=== PATIENT | female | born 1985 | race Caucasian/White ===

== ENCOUNTER 2019-08-18 06:47 | Outpatient (CLI) | payer OTHER, SELFPAY ==
[2019-08-18 07:23] LABS: Hematocrit 42.3 % (37.0-47.0); Hemoglobin 14.7 g/dL (12.0-15.0)
== END 2019-08-18 06:48 | disposition home or self-care (01) ==
PROVIDERS: PCP Family Medicine; Visit Provider Anesthesiology
DX: N93.9 Abnormal uterine and vaginal bleeding, unspecified (principal)
CPT/HCPCS: 36415; 85014; 85018

== ENCOUNTER 2019-08-28 00:43 | Outpatient (CLI) | payer OTHER, SELFPAY ==
[2019-08-28 17:00] LABS: SARS-CoV-2 RNA PCR Negative
== END 2019-08-28 00:44 | disposition home or self-care (01) ==
LOC: ANHCOVIDDT 00:43
PROVIDERS: PCP Family Medicine; Visit Provider Obstetrics & Gynecology
DX: Z01.818 Encounter for other preprocedural examination (principal); Z11.59 Encounter for screening for other viral diseases
CPT/HCPCS: 87635; C9803; U0003

== ENCOUNTER 2019-08-30 01:00 | Day surgery (SDC) | payer OTHER, SELFPAY ==
[2019-08-15 15:20] VITALS: BMI 18.3
--- NOTE | 2019-08-29 21:45 | PM.IMHP ---
H&P: HPI History of Present Illness Chief complaint: irreg bleeding, uterine polyp Narrative: 34 y/o with irregular vaginal bleeding. Ultrasound demonstrated an endometrial mass suggestive of a polyp. The right ovary is surgically absent. The let ovary is unremarkable in appearance. She had a D&C and polypectomy a few years ago. Review of Systems Review of Systems: All systems reviewed & are unremarkable except as noted in HPI and below PMFSH Past Medical History Medical History (Updated 08/29/19 @ 21:49 by Rex Garcia MD) Anxiety Attention-deficit hyperactivity disorder, unspecified type Hx of migraines Medial epicondylitis of elbow Surgical History Surgical History H/O section History of D&C History of right oophorectomy Family History Family History Father Hypertension Mother Family history of lung cancer Grandparent Family history of malignant neoplasm of uterus Family history of throat cancer Other Family history of arthritis Family history of malignant neoplasm Social History Social History Smoking status: Never smoker Alcohol intake: current Substance use: never Substance use type: does not use Gender identity (if verbalized by the patient): Female Meds Home Medications and Allergies Home Medications Medication Instructions Recorded Confirmed Type rizatriptan 10 mg PO ONCE 08/15/19 08/15/19 History dextroamphetamine-amphetamine 10 10 mg PO BID #60 tablet 08/21/19 Rx mg tablet Allergies Allergy/AdvReac Type Severity Reaction Status Date / Time No Known Allergies Allergy Unknown Verified 08/15/19 15:10 Exam Const: Orientation/consciousness: patient oriented x3 Other: Well-developed, well-nourished female in no acute distress. Neck: Thyroid: thyroid normal Lymphatic: no lymphadenopathy noted (in neck, axilla or inguinal nodes) Resp: Effort & Inspection: normal respiratory effort Auscultation: clear to auscultation bilaterally Cardio: Rate: regular rate Rhythm: regular rhythm Heart sounds: S1 normal heart sound present and S2 normal heart sound present GI: Other: ABD: Soft, nontender, nondistended. No guarding or rebound tenderness. No hepatosplenomegaly. : General: Yes no CVA tenderness Other: External genitalia: normal female hair distribution, without lesion. Urethral meatus: no lesion, non prolapsed. Bladder: no mass, nontender Vagina: well-estrogenized, without lesion or discharge. No cystocele or rectocele. Cervix: no lesion or discharge. Uterus: small, anteverted, freely mobile, nontender Adnexa: no mass or tenderness. Anus/perineum: no lesions, nontender Back/Spine/Pelvis: Back: no CVA tenderness Skin: General skin exam: normal color and no rashes or lesions noted Neuro: General: patient oriented x3 Extrem: Other: Extremities: nontender with no edema Psych: Mental Status: mental status grossly normal Affect: normal affect Assessment and Plan Assessment and plan (1) Menometrorrhagia: Code(s): N92.1 - Excessive and frequent menstruation with irregular cycle Status: Acute Assessment and Plan: I have offered a hysteroscopy with D&C and endometrial polypectomy. She understands risks of surgery to include risks of anesthesia, risks of pain, infection, bleeding, blood products, thromboembolic phenomena and damage to adjacent structures such as bowel, bladder, ureters, blood vessels and nerves. She understands all these risks and elects to proceed with surgery. (2) Abnormal pelvic ultrasound: Code(s): R93.89 - Abnormal findings on diagnostic imaging of other specified body structures Status: Acute
[2019-08-30] MEDS: LACTATED RINGERS 1,000 ML 30 ML IV CONT (11:00)
[2019-08-30 11:23] VITALS: BP 130/98; PULSE 95; RESP 16; TEMP 37; O2SAT 100
--- NOTE | 2019-08-30 11:59 | WPDANESEPPF ---
Anes - Initial Pre Proc Eval Procedure: Operation Date: 08/30/19 12:00 Proposed Procedures p Hysteroscopy Dilation and Curettage, Polypectomy - Rex Garcia MD Date/Time: 08/30/19 11:59 Surgeon: Rex Garcia MD Pre Op Diagnosis: irreg bleeding, uterine polyp Patient Data Age: 34 Gender: F Height: 1.65 m Weight: 49.1 kg Last Vital Signs Temp 37.0 C 08/30/19 11:23 Pulse 95 08/30/19 11:23 Resp 16 08/30/19 11:23 BP 130/98 H 08/30/19 11:23 Pulse Ox 100 08/30/19 11:23 Allergies Allergy/AdvReac Type Severity Reaction Status Date / Time No Known Allergies Allergy Unknown Verified 08/30/19 10:54 Home Medications Medication Instructions Recorded Confirmed Type rizatriptan 10 mg PO ONCE 08/15/19 08/30/19 History dextroamphetamine-amphetamine 10 10 mg PO BID #60 tablet 08/21/19 08/30/19 Rx mg tablet Patient hx anesthesia problems: none Family hx anesthesia problems: none PMFSH Past Medical History Medical History (Updated 08/29/19 @ 21:49 by Rex Garcia MD) Anxiety Attention-deficit hyperactivity disorder, unspecified type Hx of migraines Medial epicondylitis of elbow Surgical History Surgical History H/O section History of D&C History of right oophorectomy Family History Family History Father Hypertension Mother Family history of lung cancer Grandparent Family history of malignant neoplasm of uterus Family history of throat cancer Other Family history of arthritis Family history of malignant neoplasm Social History Social History Smoking status: Never smoker Alcohol intake: current Substance use: never Substance use type: does not use Gender identity (if verbalized by the patient): Female Anes - Eval Final PreProcedure Day of Procedure 08/30/19 11:59 Patient weight: thin Heart: regular rate and rhythm Lungs: clear to auscultation and normal air movement Airway: Mallampati scale class 1 Neurological: alert and oriented Last oral intake: >/= 8 hours ASA classification: II Emergent: no Anesthetic plan: proceed Anesthesia type and monitoring: general GIVS and standard monitoring Informed Consent: The patient's anesthetic plan and its attendant risks and benefits were discussed with the patient/family/POA. Questions were solicited and answers provided to the satisfaction of the patient/family/POA.
--- NOTE | 2019-08-30 12:26 | WPDHPUPDATE1 ---
History and Physical Update Update Date/Time: 08/30/19 12:26 History and Physical has been reviewed, including an updated exam of the patient. There are NO changes in the patient's condition. Risks, benefits, and alternatives have been discussed and questions answered. Patient agrees to proceed with procedure.
[2019-08-30] MEDS: KETOROLAC 30 MG/ML VIAL (*BKC) IV PUSH (13:22)
--- NOTE | 2019-08-30 13:23 | SUR.OPER ---
EBL:20cc
[2019-08-30 13:29] VITALS: BP 131/91; PULSE 82; RESP 14; O2SAT 100
[2019-08-30 13:50] VITALS: BP 112/62; PULSE 70; RESP 14
--- NOTE | 2019-08-30 13:52 | PM.PROC ---
Procedure Note - Detailed Date of procedure: 08/30/19 Pre-op diagnosis: irreg bleeding, uterine polyp Menometrorrhagia Abnormal pelvic ultrasound Post-op diagnosis: other (Menometrorrhagia, endometrial polyp) Procedure performed: Hysteroscopy D&C Endometrial polypectomy Description of procedure: The patient was taken to the operating room where she was prepared and draped in the usual sterile fashion in the dorsal lithotomy position. The bladder was drained with a red rubber catheter. A sterile speculum was placed into the vagina. The anterior lip of the cervix was grasped with single-tooth tenaculum. Ten mL of 1% lidocaine was administered in a paracervical block. The cervix was then gently dilated using Hegar dilators until a 7 mm dilator could be passed. Hysteroscopy was performed using sterile saline as a distention medium. Findings are as noted above. A polyp forceps was advanced and the endometrial polyp was removed and passed off to be sent to pathology. Sharp curettage was then performed, and endometrial curettings were collected on a Telfa pad and passed off to be sent to pathology. A second look was taken with the hysteroscope and the polyp was noted to have been completely excised. Hemostasis was excellent. Sponge, lap, needle and instrument counts were correct. The patient was awakened and taken to the recovery room in stable condition. I was present and scrubbed through the entire procedure. Implants: None Anesthesia: MAC and local (paracervical block) Surgeon: Rex Garcia MD Estimated blood loss (mL): 5 Drains: No Packing: No Pathology: yes (Endometrial curettings and polyp) Complications: None Condition: stable Disposition: PACU Findings: On hysteroscopy, both tubal ostia were seen. A small polyp on a narrow stalk was noted to be arising from the right, anterior endometrium.
[2019-08-30 14:25] VITALS: BP 137/82; PULSE 68; RESP 14
== END 2019-08-30 14:38 | disposition home or self-care (01) ==
PROVIDERS: PCP Family Medicine; Visit Provider Obstetrics & Gynecology
PROC: 0U5B8ZZ Destruction of Endometrium, Via Natural or Artificial Opening Endoscopic (ICD-10-PCS; CPT 58563; principal; 2019-08-30 12:00)
DX: N92.1 Excessive and frequent menstruation with irregular cycle (principal); N84.0 Polyp of corpus uteri; F41.9 Anxiety disorder, unspecified
CPT/HCPCS: 58558; 88305; J1885; J2250; J2405; J2704; J3010; J7030; J7120

== ENCOUNTER 2019-11-22 06:45 | Outpatient (CLI) | payer OTHER, SELFPAY ==
--- NOTE | ~2019-11-22 | MR_ITS ---
EXAMINATION: MR brain/brain stem wo con EXAM DATE: 11/22/2019 07:36 INDICATION: Unspecified convulsions, seizure like episode 2 weeks ago. TECHNIQUE: Magnetic resonance imaging (MRI) of the brain/brain stem obtained without contrast. Sagitt al T1, axial diffusion, gradient echo (T2*), T1, T2, FLAIR sequences obtained. Seizure protocol was utilized including high-resolution coronal images through the hippocampi. There is no prior study f or comparison. FINDINGS: There are no areas of restricted diffusion to suggest acute infarction. There is no acute hemorrhage seen on the T2*, a hemosiderin sensitive sequence. No intraparenchymal brain mass. The ve ntricles are normal in size. There are no extra-axial collections. Flow voids are seen in the cereb ral arteries on the T2-weighted sequences consistent with their expected patency. The orbits are unr emarkable. Soft tissue is unremarkable. IMPRESSION: 1. Normal brain MRI examination. Reviewed, dictated and finalized at location A.
== END 2019-11-22 06:46 | disposition home or self-care (01) ==
LOC: ANHIMG 06:46
PROVIDERS: PCP Family Medicine; Visit Provider Family Medicine
DX: R56.9 Unspecified convulsions (principal)
CPT/HCPCS: 70551

== ENCOUNTER 2019-12-15 06:47 | Outpatient (CLI) | payer OTHER, SELFPAY ==
[2019-12-15 07:40] LABS: Glucose Fasting 92 mg/dL
[2019-12-15 09:26] LABS: Glucose 1 Hour 125 mg/dL
[2019-12-15 10:09] LABS: Glucose 2 Hour 94 mg/dL
[2019-12-15 11:21] LABS: Glucose 3 Hour 62 mg/dL
== END 2019-12-15 06:48 | disposition home or self-care (01) ==
PROVIDERS: PCP Family Medicine; Visit Provider Psychiatry & Neurology Neurology
DX: E16.2 Hypoglycemia, unspecified (principal)
CPT/HCPCS: 36415; 82951; 82952

== ENCOUNTER 2019-12-25 06:45 | Outpatient (CLI) | payer OTHER, SELFPAY ==
--- NOTE | 2019-12-25 12:29 | P.NEURO_ITS ---
Neurology EEG Report General Information Date of Study: 12/25/19 TEST EEG DIAGNOSIS Seizures CONDITION OF RECORDING Awake,drowsy and sleep EEG NUMBER [id number] CLINICAL HISTORY patient reported that she has had 2 seizures about a month apart she also reported that she starts with a tingling sensation in her fingers and hands then she starts trembling and becomes unconscious and subsequently she is very tired EEG DESCRIPTION basic resting occipital frequency consists of large amount of fairly well organized low to medium voltage 8 to 10 hertz per 2nd alpha admixed with low- voltage 15 to 18 hertz per 2nd beta activity. During drowsiness low-voltage beta activity is seen diffusely admixed with waxing and waning alpha activity. Bilateral symmetrical sleep activity seen during sleep with normal and symmetrical sleep spindles. Non paroxysmal. Nonfocal. Nonlateralizing. Only single bursts of theta activity seen lasting for less than 2nd IMPRESSION no significant abnormalities noted but considering the single burst of theta activity repeat EEG is suggested at a later date
== END 2019-12-25 06:46 | disposition home or self-care (01) ==
PROVIDERS: PCP Family Medicine; Visit Provider Psychiatry & Neurology Neurology
DX: R56.9 Unspecified convulsions (principal)
CPT/HCPCS: 95819

== ENCOUNTER 2020-02-05 11:10 | Outpatient (CLI) | payer OTHER, SELFPAY ==
[2020-02-05 11:54] LABS: Basophils Percent Auto 0.4 % (0.2-1.2); Eosinophils Percent Auto 0.1 % (0-4.4); Hematocrit 39.6 % (37.0-47.0); Hemoglobin 13.9 g/dL (12.0-15.0); Immature Granulocyte Absolute 0.03 K/mm3 (0.00-0.031); Immature Granulocyte Percent A 0.4 % (0-0.5); Lymphocytes Absolute Auto 1.68 K/mm3 (0.9-3.2); Lymphocytes Percent Auto 21.3 % (18.3-44.2); Mean Corpuscular HGB Conc 35.1 g/dl (32-36); Mean Corpuscular Hemoglobin 32.8 pg (26-34); Mean Corpuscular Volume 93.4 fl (80-100); Mean Platelet Volume 10.2 fl (7.4-10.4); Monocytes Absolute Auto 0.5 K/mm3 (0.1-0.6); Monocytes Percent Auto 6.2 % (2.6-8.5); Neutrophils Absolute Auto 5.6 K/mm3 (1.3-6.7); Neutrophils Percent Auto 71.6 % (45.5-73.1); Platelet Count Result 228 k/mm3 (150-375); Red Blood Count 4.24 M/mm3 (4.2-5.4); Red Cell Distribution Width 11.5 % (11.5-14.5); White Blood Count 7.9 K/mm3 (4.5-10.0)
[2020-02-05 12:13] LABS: Alanine Aminotransferase 16 U/L (4-35); Albumin Level 4.4 g/dL (3.5-5.1); Alkaline Phosphatase 51 U/L (38-126); Anion Gap 5 mmol/L (8-16); Aspartate Amino Transferase 34 U/L (14-36); Bilirubin,Total 0.6 mg/dL (0.2-1.3); Blood Urea Nitrogen 13 mg/dL (7-17); Calcium 9.5 mg/dL (8.4-10.2); Carbon Dioxide 33 mmol/L (22-30); Chloride 96 mmol/L (98-107); Estimated Glomerular Filt Rate > 60; Glucose 89 mg/dL (65-105); Potassium 4.1 mmol/L (3.4-5.0); Sodium 134 mmol/L (137-145)
== END 2020-02-05 11:11 | disposition home or self-care (01) ==
PROVIDERS: PCP Family Medicine; Visit Provider Family Medicine
DX: F32.9 Major depressive disorder, single episode, unspecified (principal); N92.1 Excessive and frequent menstruation with irregular cycle; Z79.899 Other long term (current) drug therapy
CPT/HCPCS: 36415; 80053; 84443; 85025

== ENCOUNTER 2020-03-07 08:38 | Outpatient (CLI) | payer OTHER, SELFPAY ==
[2020-03-07 09:20] LABS: Anion Gap 6 mmol/L (8-16); Blood Urea Nitrogen 15 mg/dL (7-17); Calcium 9.6 mg/dL (8.4-10.2); Carbon Dioxide 33 mmol/L (22-30); Chloride 97 mmol/L (98-107); Estimated Glomerular Filt Rate > 60; Glucose 101 mg/dL (65-105); Potassium 3.9 mmol/L (3.4-5.0); Sodium 136 mmol/L (137-145)
== END 2020-03-07 08:39 | disposition home or self-care (01) ==
LOC: ANHLAB 08:41
PROVIDERS: PCP Family Medicine; Visit Provider Family Medicine
DX: E87.1 Hypo-osmolality and hyponatremia (principal)
CPT/HCPCS: 36415; 80048

== ENCOUNTER 2020-04-01 06:45 | Outpatient (CLI) | payer OTHER, SELFPAY ==
--- NOTE | 2020-04-01 12:20 | WPDNEUROLOGY ---
Neurology EEG Report General Information Date of Study: 04/01/20 TEST eeg DIAGNOSIS seizures CONDITION OF RECORDING awake drowsy and sleep EEG NUMBER [id number] CLINICAL HISTORY patient reported several months ago she had 3 grand mal seizures within a month. Has had no problems since then. No previous or family history of seizures EEG DESCRIPTION basic resting occipital frequency consists of large amount of poorly organized low to medium voltage 11 to 13 hertz per 2nd alpha admixed with low-voltage 15 to 21 hertz per 2nd beta activity, during drowsiness low-voltage beta activity seen diffusely admixed with intermittent 6 to 7 hertz per 2nd theta activity .bilateral symmetrical sleep activity seen during sleep. hyperventilation not done. photic stimulation produced normal drive. non paroxysmal. Nonfocal. Nonlateralizing. IMPRESSION No significant abnormalities noted considering the history of the seizures clinical correlation recommended.
== END 2020-04-01 06:46 | disposition home or self-care (01) ==
PROVIDERS: PCP Family Medicine; Visit Provider Psychiatry & Neurology Neurology
DX: R56.9 Unspecified convulsions (principal)
CPT/HCPCS: 95819

== ENCOUNTER 2021-04-11 06:42 | Outpatient (CLI) | payer OTHER, SELFPAY ==
[2021-04-11 07:25] LABS: Hematocrit 42.5 % (37.0-47.0); Mean Corpuscular HGB Conc 35.3 g/dl (32-36); Mean Corpuscular Volume 93.6 fl (80-100); Mean Platelet Volume 10.4 fl (7.4-10.4); Platelet Count Result 228 k/mm3 (150-375); Red Blood Count 4.54 M/mm3 (4.2-5.4); Red Cell Distribution Width 11.7 % (11.5-14.5); White Blood Count 4.5 K/mm3 (4.5-10.0)
[2021-04-11 08:50] LABS: Vitamin D 25 Hydroxy 39.3 ng/mL
[2021-04-11 09:39] LABS: Alanine Aminotransferase 22 U/L (4-35); Albumin Level 4.7 g/dL (3.5-5.1); Alkaline Phosphatase 43 U/L (38-126); Anion Gap 9 mmol/L (8-16); Aspartate Amino Transferase 33 U/L (14-36); Bilirubin,Total 0.7 mg/dL (0.2-1.3); Blood Urea Nitrogen 11 mg/dL (7-17); Calcium 9.5 mg/dL (8.4-10.2); Carbon Dioxide 25 mmol/L (22-30); Chloride 102 mmol/L (98-107); Cholesterol 199 mg/dL (0-200); Estimated Glomerular Filt Rate > 60; Glucose 96 mg/dL (65-110); HDL Direct 105 mg/dL; Potassium 4.4 mmol/L (3.4-5.0); Sodium 136 mmol/L (137-145); Triglycerides 39 mg/dL (<150)
[2021-04-11 09:53] LABS: LDL Cholesterol Direct 65 mg/dL
[2021-04-11 10:38] LABS: Folic Acid 15.7 ng/mL (2.76->20)
== END 2021-04-11 06:43 | disposition home or self-care (01) ==
PROVIDERS: PCP Family Medicine; Visit Provider Family Medicine
DX: Z13.1 Encounter for screening for diabetes mellitus (principal); Z13.0 Encounter for screening for diseases of the blood and blood-forming organs and certain disorders involving the immune mechanism; Z13.220 Encounter for screening for lipoid disorders; Z13.29 Encounter for screening for other suspected endocrine disorder; Z13.21 Encounter for screening for nutritional disorder
CPT/HCPCS: 36415; 80053; 80061; 82306; 82607; 82746; 84443; 85027

== ENCOUNTER 2022-03-19 06:47 | Outpatient (CLI) | payer OTHER, SELFPAY ==
[2022-03-19 07:13] LABS: Hematocrit 45.7 % (37.0-47.0); Hemoglobin 15.4 g/dL (12.0-15.0); Mean Corpuscular HGB Conc 33.7 g/dl (32-36); Mean Corpuscular Hemoglobin 32.9 pg (26-34); Mean Corpuscular Volume 97.6 fl (80-100); Mean Platelet Volume 10.4 fl (7.4-10.4); Platelet Count Result 190 k/mm3 (150-375); Red Blood Count 4.68 M/mm3 (4.2-5.4); Red Cell Distribution Width 11.8 % (11.5-14.5); White Blood Count 4.6 K/mm3 (4.5-10.0)
[2022-03-19 07:26] LABS: Alanine Aminotransferase 36 U/L (6-35); Albumin Level 4.8 g/dL (3.5-5.1); Alkaline Phosphatase 49 U/L (38-126); Anion Gap 6 mmol/L (8-16); Aspartate Amino Transferase 52 U/L (14-36); Bilirubin,Total 0.8 mg/dL (0.2-1.3); Blood Urea Nitrogen 11 mg/dL (7-17); Calcium 9.3 mg/dL (8.4-10.2); Carbon Dioxide 32 mmol/L (22-30); Chloride 96 mmol/L (98-107); Cholesterol 230 mg/dL (0-200); Estimated Glomerular Filt Rate > 60; Glucose 92 mg/dL (65-110); Potassium 4.3 mmol/L (3.4-5.0); Sodium 134 mmol/L (137-145); Triglycerides 50 mg/dL (<150)
[2022-03-19 07:36] LABS: LDL Cholesterol Direct 67 mg/dL
[2022-03-19 07:47] LABS: HDL Direct 143 mg/dL
== END 2022-03-19 06:48 | disposition home or self-care (01) ==
LOC: ANHLAB 06:48
PROVIDERS: PCP Family Medicine; Visit Provider Family Medicine
DX: Z00.00 Encounter for general adult medical examination without abnormal findings (principal); E78.5 Hyperlipidemia, unspecified; E87.1 Hypo-osmolality and hyponatremia
CPT/HCPCS: 36415; 80053; 80061; 84443; 85027

== ENCOUNTER 2022-04-08 06:54 | Outpatient (CLI) | payer OTHER, SELFPAY ==
[2022-04-08 07:58] LABS: Alanine Aminotransferase 22 U/L (6-35); Albumin Level 4.8 g/dL (3.5-5.1); Alkaline Phosphatase 46 U/L (38-126); Anion Gap 6 mmol/L (8-16); Aspartate Amino Transferase 29 U/L (14-36); Bilirubin,Total 0.7 mg/dL (0.2-1.3); Blood Urea Nitrogen 10 mg/dL (7-17); Calcium 9.4 mg/dL (8.4-10.2); Carbon Dioxide 29 mmol/L (22-30); Chloride 99 mmol/L (98-107); Estimated Glomerular Filt Rate > 60; Glucose 96 mg/dL (65-110); Potassium 3.4 mmol/L (3.4-5.0); Sodium 134 mmol/L (137-145)
[2022-04-08 08:06] LABS: Appearance Urine Clear (Clear); Bilirubin Urine Negative (Negative); Blood Urine Negative (Negative); Color Urine Yellow (Yellow); Glucose Urine UA Negative (Negative); Ketones Urine Negative (Negative); Leukocyte Esterase Ur Negative LEU/UL (NEGATIVE); Nitrate Urine Negative (Negative); Protein Urine Negative (Negative); Urobilinogen Urine 0.2 mg/dL (<2.0)
[2022-04-08 08:11] LABS: Squamous Epithelial Cell Urine Rare /hpf (Few)
[2022-04-08 08:12] LABS: Add Urine Microscopic? YES
== END 2022-04-08 06:55 | disposition home or self-care (01) ==
PROVIDERS: PCP Family Medicine; Visit Provider Family Medicine
DX: Z00.00 Encounter for general adult medical examination without abnormal findings (principal); R79.89 Other specified abnormal findings of blood chemistry; E78.5 Hyperlipidemia, unspecified; E87.1 Hypo-osmolality and hyponatremia
CPT/HCPCS: 36415; 80053; 81001

== ENCOUNTER 2022-07-05 20:30 | Emergency (ER) | payer OTHER, SELFPAY ==
[2022-07-05] VITALS (13 sets, daily range): BP systolic 84–119; BP diastolic 42–90; PULSE 90–118; RESP 14–21; TEMP 36.2; O2SAT 98–100
--- NOTE | ~2022-07-05 | CT_ITS ---
CT of the Abdomen and Pelvis: Indication: Abdominal pain Technique: 2.5 mm axial scans were obtained through the abdomen and pelvis following intravenous adm inistration of 100 cc of Omnipaque 350. Dose reduction technique was used on this scan by utilizing a utomated exposure control and iterative reconstruction technique. The dose-length product (DLP) was 2 57.96 mGy-cm. COMPARISON: 08/24/2016 Findings: Scans through the lung bases are unremarkable. The liver, spleen, pancreas, gallbladder, adrenals and kidneys are within normal limits. No evidence of aortic aneurysm. No lymphadenopathy. No bowel obstruction or bowel wall thickening. Multiple fluid-filled bowel loops noted. No abscess or free air. Images through the pelvis were performed. Urinary bladder unremarkable. No adnexal mass evident. No a scites. Impression: Multiple fluid-filled bowel loops. Correlate for nonspecific enterocolitis. No abscess, free air, or obstruction. Reviewed, dictated and finalized at [facility]. Impression: Multiple fluid-filled bowel loops. Correlate for nonspecific enterocolitis. No abscess, free air, or obstruction.
--- NOTE | 2022-07-05 20:39 | ECG_ITS ---
Measurements Intervals [place] Rate: 87 P: 80 SD: 136 QRS: 51 QRSD: 86 T: 51 QT: 384 QTc: 463 Interpretive Statements SINUS RHYTHM WITHIN NORMAL LIMITS NO PREVIOUS ECG AVAILABLE FOR COMPARISON Electronically Signed On 07-06-2022 7:08:40 CDT by Sameer Ramos M.D.
--- NOTE | 2022-07-05 20:39 | PC.NURSE ---
Patient was sitting in chair in triage and started to complain of dizziness, loss of vision, and became pale. Patient was assisted into a wheelchair by this RN and DIEUDONNE Mulligan and taken directly back to ED room 11.
[2022-07-05 20:47] LABS: Glucose Point of Care 101 mg/dl (65-105)
[2022-07-05 21:05] LABS: Alanine Aminotransferase 21 U/L (6-35); Alkaline Phosphatase 46 U/L (38-126); Anion Gap 14 mmol/L (8-16); Aspartate Amino Transferase 32 U/L (14-36); Bilirubin,Total 0.7 mg/dL (0.2-1.3); Blood Urea Nitrogen 10 mg/dL (7-17); Calcium 9.3 mg/dL (8.4-10.2); Carbon Dioxide 22 mmol/L (22-30); Chloride 104 mmol/L (98-107); Estimated CRCL calculation 77 ml/min; Estimated Glomerular Filt Rate > 60; Glucose 101 mg/dL (65-110); Lipase 96 U/L (23-300); Potassium 3.5 mmol/L (3.4-5.0); Sodium 140 mmol/L (137-145)
[2022-07-05 21:31] LABS: Basophils Absolute Auto 0.1 K/mm3 (0.0-0.1); Basophils Percent Auto 0.5 % (0.2-1.2); Eosinophils Percent Auto 0.3 % (0-4.4); Hematocrit 49.3 % (37.0-47.0); Hemoglobin 16.6 g/dL (12.0-15.0); Immature Granulocyte Absolute 0.08 K/mm3 (0.00-0.031); Immature Granulocyte Percent A 0.5 % (0-0.5); Lymphocytes Absolute Auto 0.47 K/mm3 (0.9-3.2); Lymphocytes Percent Auto 3.1 % (18.3-44.2); Mean Corpuscular HGB Conc 33.7 g/dl (32-36); Mean Corpuscular Hemoglobin 32.7 pg (26-34); Mean Corpuscular Volume 97.2 fl (80-100); Mean Platelet Volume 10.4 fl (7.4-10.4); Monocytes Absolute Auto 0.5 K/mm3 (0.1-0.6); Monocytes Percent Auto 3.1 % (2.6-8.5); Neutrophils Absolute Auto 14.1 K/mm3 (1.3-6.7); Neutrophils Percent Auto 92.5 % (45.5-73.1); Platelet Count Result 206 k/mm3 (150-375); Red Blood Count 5.07 M/mm3 (4.2-5.4); White Blood Count 15.2 K/mm3 (4.5-10.0)
[2022-07-05] MEDS: SODIUM CHLORIDE 0.9% IV 1,000 ML 999 ML IV CONT (21:36)
[2022-07-05] MEDS: HYDROmorphone HCL INJ (*CRX) 1 MG/ML SYR 0.5 MG IV PUSH ×2 (21:37→23:16)
[2022-07-05] MEDS: ONDANSETRON INJ 4 MG/2 ML VIAL IV PUSH (21:37)
--- NOTE | 2022-07-05 21:38 | ED.GENADULT ---
HPI - General Adult General Chief complaint: Abdominal Pain <Gurinder Landon MD - Last Filed: 07/09/22 07:13> Stated complaint: RLQ abd pain <Gurinder Landon MD - Last Filed: 07/09/22 07:13> Time Seen by Provider: 07/05/22 20:47 <Gurinder Landon MD - Last Filed: 07/09/22 07:13> History of Present Illness HPI narrative: 37-year-old female presented the emergency department for evaluation of right lower quadrant pain that started approximately 5 PM tonight. Patient reports that she has had approximately 4 episodes of emesis since the pain began. Patient states that she has had no pain with urination, no diarrhea and no constipation. Patient reports he does have a prior history of an oophorectomy on the right. Patient denies any prior history of gallbladder disease. Patient did report alcohol prior to arrival. Patient did have a near syncopal episode while in the waiting room. <Gurinder Landon MD - Last Filed: 07/09/22 07:13> Related Data Allergies/adverse reactions: Allergies Allergy/AdvReac Type Severity Reaction Status Date / Time No Known Allergies Allergy Unknown Verified 07/05/22 20:30 <Gurinder Landon MD - Last Filed: 07/09/22 07:13> Review of Systems Review of Systems: All systems reviewed & are unremarkable except as noted in HPI and below <Gurinder Landon MD - Last Filed: 07/09/22 07:13> [facility] Past Medical History Medical History: Medical History (Updated 07/07/22 @ 00:00 by Background Datasia) Anxiety Attention-deficit hyperactivity disorder, unspecified type Gastroparesis Medial epicondylitis of elbow Migraines Superior mesenteric artery syndrome <Gurinder Landon MD - Last Filed: 07/09/22 07:13> Surgical History Surgical History: Surgical History H/O section History of D&C History of right oophorectomy <Gurinder Landon MD - Last Filed: 07/09/22 07:13> Family History Family History: Family History Father Hypertension Mother Family history of lung cancer Grandparent Family history of malignant neoplasm of uterus Family history of throat cancer Other Family history of arthritis Family history of malignant neoplasm <Gurinder Landon MD - Last Filed: 07/09/22 07:13> Social History Social History: Social History Smoking status: Never smoker Second hand tobacco smoke exposure: No Alcohol intake: current Alcohol use details: Occasional Substance use: never Substance use type: does not use Living arrangements: with family Occupation/Education: occupation Gender identity (if verbalized by the patient): Female Sexual Orientation (if Verbalized by the Patient): Straight or Heterosexual Spiritual care concerns: No Agree to blood products: Yes <Gurinder Landon MD - Last Filed: 07/09/22 07:13> Exam Narrative: APPEARANCE: Uncomfortable appearing HEAD: normocephalic, atraumatic. EYES: PERRLA/EOMI, conjunctivae clear. NOSE: Normal no drainage RESPIRATORY: Airway patent, respirations nonlabored. Clear to auscultation bilaterally, no rales, rhonchi, wheezing. CARDIOVASCULAR: Regular rate and rhythm without murmurs rubs or gallops. ABDOMINAL: Soft, right upper quadrant right lower quadrant tenderness to palpation MUSCULOSKELETAL: Moves all extremities. Strength/ROM intact, No edema, No calf tenderness. NEURO: Alert. Cranial nerves II through XII intact. Grossly intact SKIN: Warm, dry. Normal Color <Gurinder Landon MD - Last Filed: 07/09/22 07:13> Course Course Emergency Course: 37-year-old female presenting to the ED for evaluation of right upper quadrant pain. Patient did feel improved with treatment. Patient's blood pressure also improved with IV saline. Patient's nausea was treated with 4 mg of IV
[2022-07-05] MEDS: SODIUM CHLORIDE 0.9% IV 2,000 ML 999 ML IV CONT (22:28)
[2022-07-06 00:16] LABS: Appearance Urine Clear (Clear); Bacteria Urine None Seen /hpf; Bilirubin Urine Negative (Negative); Blood Urine Negative (Negative); Color Urine Yellow (Yellow); Glucose Urine UA Negative (Negative); Ketones Urine 1+ mg/dL (Negative); Leukocyte Esterase Ur Trace LEU/UL (Negative); Nitrate Urine Negative (Negative); Non Pathogenic Casts 0-2; Protein Urine Negative (Negative); RBC Urine 0-2 /hpf (0-2); Specific Grav Ur 1.026 (1.001-1.035); Squamous Epithelial Cell Urine None seen /hpf (Few); Urobilinogen Urine 0.2 mg/dL (<2.0); WBC Urine 0-5 /hpf; pH Urine 6.5 (5.0-9.0)
[2022-07-06 00:20] LABS: Add Urine Microscopic? YES
[2022-07-06] MEDS: PROCHLORPERAZINE EDISYLATE 10 MG/2 ML VIAL IV PUSH (00:30)
[2022-07-06 01:05] VITALS: BP 123/79; PULSE 94; RESP 18; TEMP 36.6; O2SAT 99
== END 2022-07-06 01:06 | disposition home or self-care (01) ==
PROVIDERS: Emergency Provider Emergency Medicine; PCP Family Medicine
DX: K52.9 Noninfective gastroenteritis and colitis, unspecified (principal); F32.A Depression, unspecified
CPT/HCPCS: 36415; 74177; 80053; 81001; 82948; 83690; 85025; 93005; 96361; 96374; 96375; 96376; 99284; J0780; J1170; J2405; J7030; Q9967

== ENCOUNTER 2022-07-09 10:41 | Outpatient (CLI) | payer OTHER, SELFPAY ==
[2022-07-09 11:18] LABS: Basophils Percent Auto 0.4 % (0.2-1.2); Eosinophils Percent Auto 0.2 % (0-4.4); Hematocrit 42.5 % (37.0-47.0); Hemoglobin 14.7 g/dL (12.0-15.0); Immature Granulocyte Absolute 0.02 K/mm3 (0.00-0.031); Immature Granulocyte Percent A 0.4 % (0-0.5); Lymphocytes Absolute Auto 1.37 K/mm3 (0.9-3.2); Lymphocytes Percent Auto 26.2 % (18.3-44.2); Mean Corpuscular HGB Conc 34.6 g/dl (32-36); Mean Corpuscular Hemoglobin 32.5 pg (26-34); Mean Corpuscular Volume 93.8 fl (80-100); Mean Platelet Volume 10.2 fl (7.4-10.4); Monocytes Absolute Auto 0.5 K/mm3 (0.1-0.6); Monocytes Percent Auto 9.4 % (2.6-8.5); Neutrophils Absolute Auto 3.3 K/mm3 (1.3-6.7); Neutrophils Percent Auto 63.4 % (45.5-73.1); Platelet Count Result 196 k/mm3 (150-375); Red Blood Count 4.53 M/mm3 (4.2-5.4); Red Cell Distribution Width 11.9 % (11.5-14.5); White Blood Count 5.2 K/mm3 (4.5-10.0)
== END 2022-07-09 10:42 | disposition home or self-care (01) ==
PROVIDERS: PCP Family Medicine; Visit Provider Family Medicine
DX: D72.829 Elevated white blood cell count, unspecified (principal)
CPT/HCPCS: 36415; 85025

== ENCOUNTER 2023-01-06 15:52 | Outpatient (CLI) | payer OTHER, SELFPAY ==
--- NOTE | ~2023-01-06 | XR_ITS ---
EXAMINATION: XR chest 2V 01/06/2023 16:13 INDICATION: Cough PROCEDURE: 2 view chest COMPARISON: 08/18/2017 FINDINGS: The lungs are clear. The cardiomediastinal silhouette is within normal limits. There are no pleural effusions. There is no pneumothorax suspected. IMPRESSION: 1: NO ACUTE CARDIOPULMONARY DISEASE. Reviewed, dictated and finalized at location B.
== END 2023-01-06 15:53 | disposition home or self-care (01) ==
PROVIDERS: PCP Family Medicine; Visit Provider Family Medicine
DX: R05.9 Cough, unspecified (principal)
CPT/HCPCS: 71046

== ENCOUNTER 2023-04-14 06:52 | Outpatient (CLI) | payer OTHER, SELFPAY ==
[2023-04-14 07:31] LABS: Hematocrit 44.3 % (37.0-47.0); Hemoglobin 15.2 g/dL (12.0-15.0); Mean Corpuscular HGB Conc 34.3 g/dl (32-36); Mean Corpuscular Hemoglobin 32.7 pg (26-34); Mean Corpuscular Volume 95.3 fl (80-100); Mean Platelet Volume 10.4 fl (7.4-10.4); Platelet Count Result 214 k/mm3 (150-375); Red Blood Count 4.65 M/mm3 (4.2-5.4); Red Cell Distribution Width 11.3 % (11.5-14.5); White Blood Count 4.6 K/mm3 (4.5-10.0)
[2023-04-14 07:45] LABS: Alanine Aminotransferase 18 U/L (6-35); Albumin Level 4.5 g/dL (3.5-5.1); Alkaline Phosphatase 47 U/L (38-126); Anion Gap 8 mmol/L (8-16); Aspartate Amino Transferase 32 U/L (14-36); Bilirubin,Total 0.8 mg/dL (0.2-1.3); Blood Urea Nitrogen 9 mg/dL (7-17); Calcium 9.5 mg/dL (8.4-10.2); Carbon Dioxide 29 mmol/L (22-30); Chloride 99 mmol/L (98-107); Cholesterol 186 mg/dL (0-200); Estimated Glomerular Filt Rate > 60; Glucose 98 mg/dL (65-110); HDL Direct 108 mg/dL; Potassium 3.8 mmol/L (3.4-5.0); Sodium 136 mmol/L (137-145); Triglycerides 37 mg/dL (<150)
[2023-04-14 07:56] LABS: LDL Cholesterol Direct 70 mg/dL
[2023-04-14 09:45] LABS: Appearance Urine Clear (Clear); Bilirubin Urine Negative (Negative); Blood Urine Negative (Negative); Color Urine Yellow (Yellow); Glucose Urine UA Negative (Negative); Ketones Urine Negative (Negative); Leukocyte Esterase Ur Negative LEU/UL (NEGATIVE); Nitrate Urine Negative (Negative); Protein Urine Negative (Negative); Specific Grav Ur 1.004 (1.001-1.035); Urobilinogen Urine 0.2 mg/dL (<2.0); pH Urine 7.5 (5.0-9.0)
[2023-04-14 10:00] LABS: Add Urine Microscopic? NO
== END 2023-04-14 06:53 | disposition home or self-care (01) ==
LOC: ANHLAB 06:54
PROVIDERS: PCP Family Medicine; Visit Provider Family Medicine
DX: Z00.00 Encounter for general adult medical examination without abnormal findings (principal)
CPT/HCPCS: 36415; 80053; 80061; 81003; 84443; 85027

== ENCOUNTER 2023-05-19 12:45 | Outpatient (CLI) | payer OTHER, SELFPAY ==
[2023-05-19 13:11] LABS: Basophils Percent Auto 0.6 % (0.2-1.2); Eosinophils Percent Auto 0.1 % (0-4.4); Hematocrit 41.9 % (37.0-47.0); Hemoglobin 14.1 g/dL (12.0-15.0); Immature Granulocyte Absolute 0.02 K/mm3 (0.00-0.031); Immature Granulocyte Percent A 0.3 % (0-0.5); Lymphocytes Absolute Auto 1.64 K/mm3 (0.9-3.2); Lymphocytes Percent Auto 23.7 % (18.3-44.2); Mean Corpuscular HGB Conc 33.7 g/dl (32-36); Mean Corpuscular Hemoglobin 32.1 pg (26-34); Mean Corpuscular Volume 95.4 fl (80-100); Mean Platelet Volume 10.3 fl (7.4-10.4); Monocytes Absolute Auto 0.5 K/mm3 (0.1-0.6); Monocytes Percent Auto 7.2 % (2.6-8.5); Neutrophils Absolute Auto 4.7 K/mm3 (1.3-6.7); Neutrophils Percent Auto 68.1 % (45.5-73.1); Platelet Count Result 233 k/mm3 (150-375); Red Blood Count 4.39 M/mm3 (4.2-5.4); Red Cell Distribution Width 11.3 % (11.5-14.5); White Blood Count 6.9 K/mm3 (4.5-10.0)
[2023-05-19 13:32] LABS: Alanine Aminotransferase 17 U/L (6-35); Albumin Level 4.2 g/dL (3.5-5.1); Alkaline Phosphatase 42 U/L (38-126); Anion Gap 5 mmol/L (8-16); Aspartate Amino Transferase 29 U/L (14-36); Bilirubin,Total 0.7 mg/dL (0.2-1.3); Blood Urea Nitrogen 13 mg/dL (7-17); Calcium 9.8 mg/dL (8.4-10.2); Carbon Dioxide 29 mmol/L (22-30); Chloride 100 mmol/L (98-107); Estimated Glomerular Filt Rate > 60; Glucose 106 mg/dL (65-110); Potassium 3.9 mmol/L (3.4-5.0); Sodium 134 mmol/L (137-145)
== END 2023-05-19 12:46 | disposition home or self-care (01) ==
LOC: ANHLAB 12:47
PROVIDERS: PCP Family Medicine; Visit Provider Family Medicine
DX: E87.1 Hypo-osmolality and hyponatremia (principal)
CPT/HCPCS: 36415; 80053; 85025

== ENCOUNTER 2023-07-28 01:06 | Day surgery (SDC) | payer OTHER, SELFPAY ==
[2023-07-22 10:23] VITALS: BMI 19.5
--- NOTE | 2023-07-22 10:23 | PC.NURSE ---
Report to the Outpatient Waiting Room, entrance under the green pavilion located off [facility], at time _1pm_ on date _[id number]_. Planned Procedure Time: _3pm_. Time changes happen often and if your time is changed the preop area will call you the afternoon before. - You and your visitor will be asked to self-screen and do not enter if you have any COVID symptoms. - A mask is optional within the hospital at this time. Patients may have clear liquids (water, carbonated beverages, clear teas, apple juice) until 3 hours prior to surgery with a maximum of 20 ounces. - No food from midnight until time of surgery Take the following medications with a SIP of water the morning of surgery: ___None DO NOT STOP ANY OF YOUR OTHER PRESCRIPTION MEDICATIONS PRIOR TO SURGERY ?EXCEPT THE FOLLOWING Medications to discontinue per physician None Date to take last dose Please no make-up, nail kyrgyz, hairspray, perfume, deodorant, or body powder the day of surgery. No jewelry (including any body piercings) or valuables the day of surgery, leave them at home. Please take a shower or bath the night before, or the morning of, surgery with an antibacterial soap. Wear comfortable, loose fitting clothing. - Jewelry must be removed prior to entering the operating room. Rings and piercings that are not removed may be cut off. - The hospital will not accept responsibility for valuables. - Please leave all valuables, including medications, at home the day of surgery. If you are going home after surgery, a licensed wrecking car driver must drive you home. - NO public transportation without another adult if you receive anesthesia. - We recommend that an adult stay with you for 24 hours following discharge. - We also recommend that you do not drive, make important decision, drink alcoholic beverages, or take any drugs that were not prescribed by your health care provider for at least 24 hours after your discharge time. Follow any additional instructions given to you from your surgeon. If you or anyone in your household have experienced Covid symptoms in the past week, please notify your surgeon or the nurse liaison at the phone number below for possible testing. Telephone instructions given to __Annabella___and asked if any additional questions and then verbalized understanding. Patient advised to call surgeon office or pre surgery nurse liaison [phone] if any additional questions.
--- NOTE | 2023-07-28 12:48 | PM.IMHP ---
H&P: HPI History of Present Illness Date/Time: 07/28/23 12:48 Chief Complaint: Breakthrough bleeding. Narrative: 38 y/o with typically monthly menses lasting 4-5 days each. However, over the last few months she has had irregular bleeding. Her has had a vasectomy and she has completed her childbearing. She has had two endometrial polypectomy procedures in the past. Ultrasound exam shows an irregular, heterogeneous, 8mm thick endometrial complex with increased blood flow. She is interested in surgical management. Review of Systems Review of Systems: All systems reviewed & are unremarkable except as noted in HPI and below PMFSH Past Medical History Medical History Anxiety Attention-deficit hyperactivity disorder, unspecified type Gastroparesis Medial epicondylitis of elbow Migraines Superior mesenteric artery syndrome Surgical History Surgical History H/O section History of D&C History of right oophorectomy Family History Family History Father Hypertension Mother Family history of lung cancer Grandparent Family history of malignant neoplasm of uterus Family history of throat cancer Other Family history of arthritis Family history of malignant neoplasm Social History Social History Smoking status: Never smoker Second hand tobacco smoke exposure: No Alcohol intake: current Drinks per week: 4 Alcohol use details: Occasional Substance use: never Substance use type: does not use Living arrangements: with family Occupation/Education: occupation Gender identity (if verbalized by the patient): Female Sexual Orientation (if Verbalized by the Patient): Straight or Heterosexual Spiritual care concerns: No Agree to blood products: Yes Meds Home Medications and Allergies Home Medications Medication Instructions Recorded Confirmed Type ondansetron 4 mg disintegrating 4 mg PO Q8H PRN nausea and 07/06/22 07/22/23 Rx tablet vomiting #30 tabs rizatriptan 10 mg tablet See Rx Instructions .Route 01/07/23 07/22/23 Rx .COMPLEX #10 tabs metoclopramide HCl 5 mg tablet 5 mg PO BIDWMEAL 1 month #60 tabs 05/20/23 07/22/23 Rx dextroamphetamine-amphetamine ER 20 mg PO DAILY #30 caps 07/01/23 07/22/23 Rx 20 mg 24hr capsule,extend release (Adderall XR) Allergies Allergy/AdvReac Type Severity Reaction Status Date / Time No Known Allergies Allergy Unknown Verified 07/22/23 10:18 Exam Const: Orientation/consciousness: patient oriented x3 Other: Well-developed, well-nourished female in no acute distress. Neck: Thyroid: thyroid normal Lymphatic: no lymphadenopathy noted (in neck, axilla or inguinal nodes) Resp: Effort & Inspection: normal respiratory effort Auscultation: clear to auscultation bilaterally Cardio: Rate: regular rate Rhythm: regular rhythm Heart sounds: S1 normal heart sound present and S2 normal heart sound present GI: Other: ABD: Soft, nontender, nondistended. No guarding or rebound tenderness. No hepatosplenomegaly. : General: Yes no CVA tenderness Other: External genitalia: normal female hair distribution, without lesion. Urethral meatus: no lesion, non prolapsed. Bladder: no mass, nontender Vagina: well-estrogenized, without lesion or discharge. No cystocele or rectocele. Cervix: no lesion or discharge. Uterus: small, anteverted, freely mobile, nontender Adnexa: no mass or tenderness. Anus/perineum: no lesions, nontender Back/Spine/Pelvis: Back: no CVA tenderness Skin: General skin exam: normal color and no rashes or lesions noted Neuro: General: patient oriented x3 Extrem: Other: Extremities: nontender with no edema Psych: Mental Status: mental status grossly no
--- NOTE | 2023-07-28 13:02 | WPDHPUPDATE1 ---
History and Physical Update Update Date/Time: 07/28/23 13:02 History and Physical has been reviewed, including an updated exam of the patient. There are NO changes in the patient's condition. Risks, benefits, and alternatives have been discussed and questions answered. Patient agrees to proceed with procedure.
[2023-07-28 13:07] VITALS: BP 171/88; PULSE 83; RESP 18; TEMP 36.7; O2SAT 100
[2023-07-28] MEDS: LACTATED RINGERS 1,000 ML 30 ML IV CONT ×2 (13:47→16:39)
--- NOTE | 2023-07-28 14:31 | WPDANESEPPF ---
Anes - Initial Pre Proc Eval Procedure: Operation Date: 07/28/23 15:00 Proposed Procedures p Hysteroscopy, Dilation and Curettage, Diandra Endometrial Ablation - Rex Garcia MD Date/Time: 07/28/23 14:31 Surgeon: Rex Garcia MD Pre Op Diagnosis: irregular excessive bleeding Patient Data Age: 38 Gender: F Height: 1.65 m Weight: 54.6 kg Last Vital Signs Temp 98.0 F 07/28/23 13:07 Pulse 83 07/28/23 13:07 Resp 18 07/28/23 13:07 BP 171/88 H 07/28/23 13:07 Pulse Ox 100 07/28/23 13:07 O2 Del Method Room Air 07/28/23 13:07 Allergies Allergy/AdvReac Type Severity Reaction Status Date / Time No Known Allergies Allergy Unknown Verified 07/28/23 13:10 Home Medications Medication Instructions Recorded Confirmed Type ondansetron 4 mg disintegrating 4 mg PO Q8H PRN nausea and 07/06/22 07/28/23 Rx tablet vomiting #30 tabs rizatriptan 10 mg tablet See Rx Instructions .Route 01/07/23 07/28/23 Rx .COMPLEX #10 tabs metoclopramide HCl 5 mg tablet 5 mg PO BIDWMEAL 1 month #60 tabs 05/20/23 07/28/23 Rx dextroamphetamine-amphetamine ER 20 mg PO DAILY #30 caps 07/01/23 07/28/23 Rx 20 mg 24hr capsule,extend release (Adderall XR) Patient hx anesthesia problems: none Family hx anesthesia problems: none Results Review: All pre-operative results and documents have been reviewed as part of the pre-operative evaluation. [facility] Past Medical History Medical History Anxiety Attention-deficit hyperactivity disorder, unspecified type Gastroparesis Medial epicondylitis of elbow Migraines Superior mesenteric artery syndrome Surgical History Surgical History H/O section History of D&C History of right oophorectomy Family History Family History Father Hypertension Mother Family history of lung cancer Grandparent Family history of malignant neoplasm of uterus Family history of throat cancer Other Family history of arthritis Family history of malignant neoplasm Social History Social History Smoking status: Never smoker Second hand tobacco smoke exposure: No Alcohol intake: current Drinks per week: 4 Alcohol use details: Occasional Substance use: never Substance use type: does not use Living arrangements: with family Occupation/Education: occupation Gender identity (if verbalized by the patient): Female Sexual Orientation (if Verbalized by the Patient): Straight or Heterosexual Spiritual care concerns: No Agree to blood products: Yes Anes - Eval Final PreProcedure Day of Procedure 07/28/23 14:31 Patient weight: normal Heart: regular rate and rhythm Lungs: clear to auscultation Airway: Mallampati scale class 1 Neurological: alert and oriented Last oral intake: >/= 8 hours ASA classification: I Emergent: no Anesthetic plan: proceed Anesthesia type and monitoring: general GIVS and standard monitoring Results Review: All pre-operative results and documents have been reviewed as part of the pre-operative evaluation. Active w exercising 3-4 x weekly, no cp or sob. Informed Consent: The patient's anesthetic plan and its attendant risks and benefits were discussed with the patient/family/POA. Questions were solicited and answers provided to the satisfaction of the patient/family/POA.
[2023-07-28] MEDS: ACETAMINOPHEN 500 MG TABLET 1000 MG PO (14:55)
[2023-07-28] MEDS: LIDOCAINE HCL 1% LOCAL INJ 20 ML VIAL 10 ML INFILTRATE (16:20)
--- NOTE | 2023-07-28 16:38 | W.PM.PROC2 ---
Procedure Note - Detailed Date of Procedure 07/28/23 Pre-op Diagnosis Menometrorrhagia Post-op Diagnosis Same Procedure Performed Hysteroscopy Dilation and sharp curettage Endometrial polypectomy Endometrial ablation Surgeon Rex Garcia MD Anesthesia MAC and Local (1% lidocaine) Findings Anterior endometrial polyp. Otherwise, unremarkable endometrial cavity. Both tubal ostia seen. Description of Procedure The patient was taken to the operating room where she was prepared and draped in the usual sterile fashion in the dorsal lithotomy position. The bladder was drained with a red rubber catheter. A sterile speculum was placed into the vagina. The anterior lip of the cervix was grasped with single-tooth tenaculum. Ten mL of 1% lidocaine was administered in a paracervical block. The cervix was then gently dilated using Hegar dilators until a 7 mm dilator could be passed. Hysteroscopy was performed using sterile saline as a distention medium. Findings are as noted above. The Aveta hysteroscopic resector was used to shave off the anterior endometrial polyp. Sharp curettage was then performed, and endometrial curettings were collected on a Telfa pad and passed off to be sent to pathology. Finally, the the Diandra device was advanced and endometrial ablation commenced without difficulty. The device was withdrawn and a second look was taken using the hysteroscope. Excellent coverage of the endometrial cavity was noted. The tenaculum was removed. Hemostasis was excellent. Sponge, lap, needle and instrument counts were correct. The patient was awakened and taken to the recovery room in stable condition. I was present and scrubbed through the entire procedure. Implants None Estimated Blood Loss 5 Drains No Packing No Pathology Yes (Endometrial curettings and polyp) Complications None Condition Stable Disposition PACU
[2023-07-28 16:39] VITALS: BP 118/79; PULSE 91; RESP 14; O2SAT 100
[2023-07-28] MEDS: oxyCODONE HCL (*CRX) 5 MG TAB IR PO (17:04)
[2023-07-28 17:10] VITALS: BP 122/73; PULSE 68
[2023-07-28 17:40] VITALS: BP 120/69; PULSE 86
== END 2023-07-28 18:05 | disposition home or self-care (01) ==
PROVIDERS: PCP Family Medicine; Visit Provider Obstetrics & Gynecology
PROC: 0U5B8ZZ Destruction of Endometrium, Via Natural or Artificial Opening Endoscopic (ICD-10-PCS; CPT 58563; principal; 2023-07-28 15:00)
DX: N92.1 Excessive and frequent menstruation with irregular cycle (principal); N84.0 Polyp of corpus uteri; F90.9 Attention-deficit hyperactivity disorder, unspecified type
CPT/HCPCS: 58563; 88305; A9270; J2250; J2405; J2704; J3010; J7120

== ENCOUNTER 2023-09-29 08:20 | Outpatient (CLI) | payer OTHER, SELFPAY ==
--- NOTE | ~2023-09-29 | XR_ITS ---
AP view of the pelvis and AP and lateral views of the left hip Clinical history: Pain Findings: No acute fracture or dislocation is seen. Osseous alignment is anatomic. Bilateral hip and SI joint spaces are preserved. Soft tissues are unremarkable. Impression: No significant abnormality is seen. Reviewed, dictated and finalized at [facility]. Impression: No significant abnormality is seen.
== END 2023-09-29 08:21 | disposition home or self-care (01) ==
LOC: ANHIMG 08:22
PROVIDERS: PCP Family Medicine; Visit Provider Family Medicine
DX: M25.552 Pain in left hip (principal)
CPT/HCPCS: 73502

== ENCOUNTER 2023-10-16 07:33 | Outpatient (CLI) | payer OTHER, SELFPAY ==
--- NOTE | ~2023-10-16 | MR_ITS ---
EXAMINATION: MR hip LT wo/w con DATE: 10/16/2023 08:38 INDICATION: Left hip pain. TECHNIQUE: Magnetic resonance imaging (MRI) of the left hip was performed without and with 10 mL Mult iHance intravenous contrast. COMPARISON: Pelvis and left hip radiograph 09/29/2023 FINDINGS: Bones/cartilage: Bone alignment is normal. No fracture. The femoral head/neck morphologies are normal. Small field-of- view images of left hip demonstrate partial-thickness cartilage loss posteriorly. Labrum: The left acetabular labrum is normal. Fluid: There is no hip joint effusion. There is mild bilateral trochanteric bursitis. Soft tissues: There is mild tendinopathy of the hamstring origins bilaterally. The iliopsoas tendons are normal. Th ere is mild bilateral gluteus minimus tendinopathy. The gluteus medius tendons are normal. IMPRESSION: 1. Mild left hip chondrosis. Reviewed, dictated and finalized at location A.
== END 2023-10-16 07:34 | disposition home or self-care (01) ==
PROVIDERS: PCP Family Medicine; Visit Provider Physician Assistant Medical
DX: M94.252 Chondromalacia, left hip (principal)
CPT/HCPCS: 73723; A9577

== ENCOUNTER 2024-05-16 06:58 | Outpatient (CLI) | payer OTHER, SELFPAY ==
[2024-05-16 07:23] LABS: Hematocrit 43.5 % (37.0-47.0); Hemoglobin 14.9 g/dL (12.0-15.0); Mean Corpuscular HGB Conc 34.3 g/dl (32-36); Mean Corpuscular Hemoglobin 32.8 pg (26-34); Mean Corpuscular Volume 95.8 fl (80-100); Mean Platelet Volume 10.1 fl (7.4-10.4); Platelet Count Result 208 k/mm3 (150-375); Red Blood Count 4.54 M/mm3 (4.2-5.4); Red Cell Distribution Width 11.6 % (11.5-14.5); White Blood Count 3.5 K/mm3 (4.5-10.0)
[2024-05-16 07:41] LABS: LDL Cholesterol Direct 62 mg/dL
[2024-05-16 07:47] LABS: Alanine Aminotransferase 25 U/L (6-35); Albumin Level 4.5 g/dL (3.5-5.1); Alkaline Phosphatase 51 U/L (38-126); Anion Gap 7 mmol/L (4-12); Aspartate Amino Transferase 38 U/L (14-36); Bilirubin,Total 0.8 mg/dL (0.2-1.3); Blood Urea Nitrogen 8 mg/dL (7-17); Calcium 9.6 mg/dL (8.4-10.2); Carbon Dioxide 31 mmol/L (22-30); Chloride 98 mmol/L (98-107); Cholesterol 221 mg/dL (0-200); Estimated Glomerular Filt Rate > 60; Glucose 103 mg/dL (65-110); Potassium 4.5 mmol/L (3.4-5.0); Sodium 136 mmol/L (137-145); Triglycerides 45 mg/dL (<150)
[2024-05-16 07:54] LABS: HDL Direct 143 mg/dL
[2024-05-16 08:00] LABS: Add Urine Microscopic? YES; Appearance Urine Clear (Clear); Bilirubin Urine Negative (Negative); Blood Urine Negative (Negative); Color Urine Dark Yellow (Yellow); Glucose Urine UA Negative (Negative); Ketones Urine Trace mg/dL (Negative); Leukocyte Esterase Ur Negative LEU/UL (Negative); Nitrate Urine Negative (Negative); Protein Urine Negative (Negative); Specific Grav Ur 1.019 (1.001-1.035); pH Urine 7.5 (5.0-9.0)
== END 2024-05-16 06:59 | disposition home or self-care (01) ==
LOC: ANHLAB 07:01
PROVIDERS: PCP Family Medicine; Visit Provider Physician Assistant
DX: Z00.00 Encounter for general adult medical examination without abnormal findings (principal)
CPT/HCPCS: 36415; 80053; 80061; 81001; 84443; 85027

== ENCOUNTER 2024-06-09 07:29 | Outpatient (CLI) | payer OTHER, SELFPAY ==
--- NOTE | ~2024-06-09 | MM_ITS ---
EXAMINATION: MM screening [facility] BI w rocio HISTORY: Baseline screening examination. TECHNIQUE: Craniocaudal and mediolateral oblique 3-D tomosynthesis images were obtained and synthetic 2-D images were generated. CAD analysis was submitted and interpreted. COMPARISON: None BREAST PARENCHYMAL COMPOSITION: There are scattered areas of fibroglandular density. FINDINGS: Punctate calcifications are detected bilaterally, stable and benign in appearance. Stable parenchymal pattern without suspicious microcalcifications, architectural distortion, discrete masses or significant asymmetry. IMPRESSION: 1. No mammographic evidence of malignancy. 2. Recommend routine screening mammography in one year. BI-RADS Category 2: Benign finding(s). Reviewed, dictated and finalized at location A.
== END 2024-06-09 07:30 | disposition home or self-care (01) ==
LOC: CHSIMG 07:31
PROVIDERS: PCP Family Medicine; Visit Provider Family Medicine
DX: Z12.31 Encounter for screening mammogram for malignant neoplasm of breast (principal)
CPT/HCPCS: 77063; 77067

== ENCOUNTER 2024-06-13 07:05 | Outpatient (CLI) | payer OTHER, SELFPAY ==
--- OUTSIDE RECORDS SUMMARY | 2024-06-13 07:08 | XMS_ITS ---
Author Organization [facility] Address [address] [place] [address] Care Team Providers Care Engine Setter Name Role Phone Robert Paulino MD Primary Care Provider Unavaila Patty Rees Unavailable [phone] [facility], Provider Unavailable Unavailab le REASON FOR VISIT [facility] To [facility] Conversion Encounter Medications Medication SIG (Take, Route, Frequency, Duration) Notes Start Date End Date Status Pepcid 20 MG 1 tab(s) orally 2 times a day for 30 days 06/21/2023 Active Montelukast Sodium 10 MG 1 tab(s) orally once a day for 30 days 06/21/2023 Active Montelukast Sodium 10 MG 1 tab(s) orally once a day for 90 days Not-Taking Adderall 20 MG 1 tab(s) orally 2 times a day Active Cetirizine HCl 10 MG 1 tab(s) orally BID for 30 days 06/21/2023 Active Vanicream - 1 brian applied topically 4 times a day Active Reglan *Please review a nd pick correct strength-formulati on from Medispan options. If intended option is not shown, discontinue and re-order from Quick Search* Active Rizatriptan Benzoate *Please review and pick correct strength-formulati on from Medispan options. If intended option is not shown, discontinue and re-order from Quick Search* Active Encounters Encounter Location Date Provider Diagnosis [facility] [address] [place] [address] 08/28/2023 Provider ZZ-Migration Rash and other nonspecific skin eruption R21 Assessments Encounter Date Diagnosis (ICD Code) Assessment Notes Treatment Notes Treatment Clinical Notes Section Notes 08/28/2023 Rash and other nonspecific skin eruption (ICD-10 - R21) Plan Of Treatment Medication Medication Name Sig Start Date Stop Date Notes Vanicream - 1 brian applied topically 4 times a day Progress Notes * Kalin RAMOSeDOB: 5 (39 yo F)Acc No.[id number]:08/28/2023 Patient: Annabella MCLEOD Provider: Cari Hinkle :1985 A ge:38 Y S ex:Female Date:08/28/2023 Address[address] [id number] Pcp:Robert Paulino MD Subjective: * Chief Complaints: * 1 . Multum To Medispan Conversion Encounter. * Medical History: * Medications: T aking Reglan , Notes to Pharmacist: *Please review and pick correct strength-formulation from [employer]ro[employer]pan options. If intended option is not shown, discontinue and re-order from Quick Search*, Taking Rizatriptan Benzoate , Notes to Pharmacist: *Please review and pick correct strength-formulation from [employer]pan options. If intended option is not shown, discontinue and re-order from Quick Search*, Taking Adderall 20 MG Tablet 1 tab(s) orally 2 times a day , Taking Cetirizine HCl 10 MG Tablet 1 tab(s) orally BID , Taking Pepcid 20 MG Tablet 1 tab(s) orally 2 times a day , Taking Montelukast Sodium 10 MG Tablet 1 tab(s) orally once a day , Not-Taking/PRN Montelukast Sodium 10 MG Tablet 1 tab(s) orally once a day Objective: * Vitals: Assessment: * Assessment: 1. R gina and other nonspecific skin eruption - R21 (Primary) Plan: * Treatment: * Billing Information: * Visit Code: * Procedure Codes: * Electronic signature of Prov ider [facility]Z-Migration on 06/13/2024 at 07:08 AM CDT Sign off status: Pending * Provider: Cari Hinkle Date: 0 08/28/2023 Generated for Williams choi/Willie/Ivan on: 0 06/13/2024 07:08 AM CDT
--- OUTSIDE RECORDS SUMMARY | 2024-06-13 07:08 | XMS_ITS | Encounter Summary ---
Author Organization [facility] Address [address] [place] [id number] Care Team Providers Care Independent Insurance Adjuster Name Role Phone Anurag Balderas MD Primary Care Provider [phone] Encounter Details Date Type Department Care Team (Late st Contact Info) Description 02/26/2014 Abstract [facility] CONVERSION [address] [place] [address] , Generic Conversion, Social History Tobacco Use Types Packs/Day Years Used Date Smoking Tobacco: Never Assessed Comments Unknown Sex and Gender Information Value Date Recorded Sex Assigned at Not on file Legal Sex Female 7:10 PM CDT Gender Identity Not on file Sexual Orientation Not on file documented as of this encounter Plan of Treatment Not on file documented as of this encounter Visit Diagnoses Not on filedocumented in this encounter Care Teams Independent Insurance Adjuster Relationship Specialty Start Date End Date Anurag Balderas MD [address] [place] [id number] PCP - General INTERNAL MEDICINE 10/29/19 documented as of this encounter
--- OUTSIDE RECORDS SUMMARY | 2024-06-13 07:08 | XMS_ITS | Clinical Summary ---
Author Organization [facility] Address [address] [place] [address] Care Team Providers Care Assistant Director Of Security Name Role Phone Anurag Balderas MD Primary Care Provider [phone] Allergies No known active allergies Medications dextroamphetami ne-amphetamine (ADDERALL) 10 mg tablet Take 10 mg by mouth 2 times daily . Active ondansetron (ZOFRAN ODT) 8 mg Tablet, Rapid Dissolve Take 4 mg by mouth every 6 hours as needed for Nausea/Emesis Dissolve tablet on top of tongue, then swallow with saliva. . Active rizatriptan (MAXALT) 10 mg Tablet Take 10 mg by mouth every 2 hours as needed for Migraine may repeat in 2 hours; max dose 30mg in 24 hours . Active citalopram (CeleXA) 10 mg tablet Take 20 mg by mouth daily . Active cyanocobalamin 1,000 mcg Tablet Take 2,000 mcg by mouth daily. Active Active Problems Problem Noted Date Diagnosed Date History of partial hysterectomy 02/25/2017 Situational depression 08/18/2016 Overview (08/18/2016): Lymphadenopathy of head and neck 08/18/2016 Family History Medical History Relation Name Comments Cancer Mother Relation Name Status Comments Father Alive Mother Alive Sister Alive Social History Tobacco Use Types Packs/Day Years Used Date Smoking Tobacco: Never Alcohol Use Standard Drinks/Week Comments Yes 5 (1 standard drink = 0.6 oz pur e alcohol) Comments No Sex and Gender Information Value Date Recorded Sex Assigned at Not on file Legal Sex Female 10:05 AM CDT Gender Identity Not on file Sexual Orientation Not on file Last Filed Vital Signs Vital Sign Reading Time Taken Comments Blood Pressure 125/72 07/02/2017 9:49 AM CDT Pulse 98 07/02/2017 9:49 AM CDT Temperature 37 C (98.6 F) 07/02/2017 9:49 AM CDT Respiratory Rate 18 07/02/2017 9:49 AM CDT Oxygen Saturation 98% 07/02/2017 9:49 AM CDT Inhaled Oxygen Concentration - - Weight 50.8 kg (112 lb) 07/02/2017 9:49 AM CDT Height 165.1 cm (5' 5 ) 07/02/2017 9:49 AM CDT Body Mass Index 18.64 07/02/2017 9:49 AM CDT Plan of Treatment Health Maintenance Due Date Last Done Comments DTAP/TDAP/TD VACCINES (1 - Tdap) 2003 HEPATITIS B VACCINES (1 of 3 - 19+ 3-dose series) 2003 PAP SMEAR 2005 CERVICAL CANCER SCREENING 2014 HPV/Cotest (30-65) 2014 PAP SMEAR 2014 INFLUENZA VACCINE (#1) 2023 BREAST CANCER SCREENING 2024 HPV VACCINES Aged Out No longer eligi ble based on patient's age to complete this topic Insurance [facility] [employer] PPO [id number] Care Teams Assistant Director Of Security Relationship Specialty Start Date End Date Anurag Balderas MD [address] [place] [address] [address] [place] [address] PCP - General Internal Medicine 08/12/16
--- OUTSIDE RECORDS SUMMARY | 2024-06-13 07:08 | XMS_ITS ---
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 Rash appears and resolves in 2-3 days. No clear triggers. No associated symptoms., Chronic upper airway symptoms concerning for uncontrolled atopic disease, occasional nasal congestion and drainage.Takes Claritin as-needed. Medications Medication SIG (Take, Route, Fr equency, Duration) Notes Start Date End Date Status MONTELUKAST 10 mg 1 tab(s) orally once a day for 30 days 06/21/2023 Active VANICREAM - 1 brian applied topica lly 4 times a day Active PEPCID 20 mg 1 tab(s) orally 2 ti mes a day for 30 days 06/21/2023 Active MONTELUKAST 10 mg 1 tab(s) orally once a day for 90 days Not-Taking CETIRIZINE 10 mg 1 tab(s) orally BID for 30 days 06/21/2023 Active ADDERALL 20 mg 1 tab(s) orally 2 times a day Active RIZATRIPTAN Active REGLAN Active Social History Tobacco Use: Social History Observation Description Date Details (start date - stop date) Never Smoker NA - NA Smoking Smart Form: Question Answer Notes Are you a: never smoker Tobacco Control (Standard) Question Answer Notes Tobacco use: Nonsmoker Vital Signs Blood pressure systolic 135 mm Hg 07/26/19 24 Blood pressure diastolic 85 mm Hg 024 Respiratory Rate 18 /min 07/26/2023 Height 65 in 07/26/2023 Weight 121.4 lbs 07/26/2023 BMI 20.2 kg/m2 07/26/2023 Oximetry 98 % 07/26/2023 Encounters Encounter Location Date Provider Diagnosis [facility] - [place] [address] [place] [address] 07/26/2023 Patty Burch Hypertrophy of nasal turbinates J34.3 ; Rash and other nonspecific skin eruption R21 ; Chronic rhinitis J31.0 and Elevated blood-pressure reading, without diagnosis of hypertension R03.0 Assessments Encounter Date Diagnosis (ICD Code) Assessment Notes Treatment Notes Treatment Clinical Notes Section Notes 07/26/2023 Hypertrophy of nasal turbinates (ICD-10 - J34.3) Annabella endorses occasional upper airway symptoms concerning for atopic disease. She currently takes Claritin as-needed. Denies daily symptoms. She has one dog at home. - Consider skin testing to aeroallergens in the future, Annabella is not interested at this time 07/26/2023 Rash and other nonspecific skin eruption (ICD-10 - R21) Annabella presented last visit with complaints of a rash that has been coming and going for the past year and a half. She describes the rash as slightly raised, erythematous that occasional feels very hot. She has been unable to identify clear trigger, at times felt it was due to gluten consumption, however was unable to pinpoint a timeline. She denies associated systemic symptoms. States the rash will occur and then resolve in 2-3 days. She has tried using hydrocortisone cream which she did find beneficial. - Photo review showed erythematous patches across face and neck, some lesions appear raised while others appear flat. Annabella's symptoms appear both typical and atypical for urticaria, as well as typical and atypical for contact dermatitis. - Consider contact dermatitis vs CIU vs other. - Last visit started trial of Zyrtec BID, Pepcid BID and Singulair at night. Annabella feels rash occurred less often on this regimen, however did occur twice. Due to this, consider contact dermatitis. - Last visit discussed changing products to dye-free, scent-free, paraben free. Suggested Vanicream line for all products in addition to All Free and Clear Laundry detergent. Annabella does feel Vanicream has been beneficial. - Annabella feels she has identified a skin care brand that she uses that is causing symptoms. Reports she used the brand and two days later rash recurred on her face. Discussed avoidance of this skin care line and continuing to journal for triggers. If symptoms recur, consider patch testing. - Symptoms described do not appear consistent with an IgE-mediated hypersensitivity reaction. Empirical skin testing is not recommended. - Discussed strict journaling for triggers. - Consider skin testing to aeroallergens, however photo review is not consistent with atopic dermatitis. - Consider consult with dermatology for biopsy. - Return in 3 months for further evaluation and management 07/26/2023 Chronic rhinitis (ICD-10 - J31.0) See plan above 07/26/2023 Elevated blood-pressure reading, without diagnosis of hypertension (ICD-10 - R03.0) BP elevated today without symptoms of urgency or emergency. Continue serial checks and follow-up with PCP 07/26/2023 Other Plan Of Treatment Medication Medication Name Sig Start Date Stop Date Notes VANICREAM - 1 brian applied topically 4 times a day PEPCID 20 mg 1 tab(s) orally 2 ti mes a day for 30 days CETIRIZINE 10 mg 1 tab(s) orally twice a day for 30 days MONTELUKAST 10 mg 1 tab(s) orally once a day for 30 days Treatment Notes Assessment Notes Hypertrophy of nasal turbinates Annabella endorses occasional upper airway symptoms concerning for atopic disease. She currently takes Claritin as-needed. Denies daily symptoms. She has one dog at home. - Consider skin testing to aeroallergens in the future, Annabella is not interested at this time Rash and other nonspecific skin eruption Annabella presented last visit with complaints of a rash that has been coming and going for the past year and a half. She describes the rash as slightly raised, erythematous that occasional feels very hot. She has been unable to identify clear trigger, at times felt it was due to gluten consumption, however was unable to pinpoint a timeline. She denies associated systemic symptoms. States the rash will occur and then resolve in 2-3 days. She has tried using hydrocortisone cream which she did find beneficial. - Photo review showed erythematous patches across face and neck, some lesions appear raised while others appear flat. Annabella's symptoms appear both typical and atypical for urticaria, as well as typical and atypical for contact dermatitis. - Consider contact dermatitis vs CIU vs other. - Last visit started trial of Zyrtec BID, Pepcid BID and Singulair at night. Annabella feels rash occurred less often on this regimen, however did occur twice. Due to this, consider contact dermatitis. - Last visit discussed changing products to dye-free, scent-free, paraben free. Suggested Vanicream line for all products in addition to All Free and Clear Laundry detergent. Annabella does feel Vanicream has been beneficial. - Annabella feels she has identified a skin care brand that she uses that is causing symptoms. Reports she used the brand and two days later rash recurred on her face. Discussed avoidance of this skin care line and continuing to journal for triggers. If symptoms recur, consider patch testing. - Symptoms described do not appear consistent with an IgE-mediated hypersensitivity reaction. Empirical skin testing is not recommended. - Discussed strict journaling for triggers. - Consider skin testing to aeroallergens, however photo review is not consistent with atopic dermatitis. - Consider consult with dermatology for biopsy. - Return in 3 months for further evaluation and management Chronic rhinitis See plan above Elevated blood-pressure read ing, without diagnosis of hypertension BP elevated today without symptoms of urgency or emergency. Continue serial checks and follow-up with PCP Next Appt Details Follow Up: 3 Months, Reason: Evaluation and Management Progress Notes * Kalin RAMOSeDOB: 5 (38 yo F)Acc No.[id number]:07/26/2023 Progress Notes Patient: Annabella MCLEOD Provider: SANDER Bobo-Jason :1985 A ge:38 Y S ex:Female Date:07/26/2023 Address: [address], [place], [id number] Pcp:Robert Paulino MD Subjective: * Chief Complaints: * E rythematous, slightly raised rash that has been occurring on face and neck for the past few months. Rash appears and resolves in 2-3 days. No clear triggers. No associated symptoms.Chronic upper airway symptoms concerning for uncontrolled atopic disease, occasional nasal congestion and drainage. Takes Claritin as-needed. * HPI: * Introduction: I had the pleasure of seeing Jason Ramos, a [id number] female with past medical history significant for gastroparesis andmigraines who returns for rash follow-up. She is alonefor today's visit. Annabella has been experiencing an erythematous, slightlyraised rash that occurs on her face and neck. Symptoms first occurred a yearand a half ago, however in the past three months it has been occurring morefrequently. She states the rash will come and go within 2-3 days without cleartrigger. Initially she was concerned it was related to gluten consumption,however has not identified a clear correlation. She denies associated symptoms includingfacial swelling, lower airway or GI symptoms. She has tried using hydrocortisonecream previously, which she does feel is beneficial. Annabella currently usesNative body wash, Joico shampoo and conditioner, Young Living and Tide laundrydetergent. She had anappointment with dermatology, however canceled it as the rash was not presentat the time. Last visit we started trial of Zyrtec and Pepcid BID and Singulair at night, which Annabella does feel was beneficial, however rash did occur twice in the last 4 weeks. She feels she has identified a specific skin care brand that is causing her symptoms, reports she used the makeup over the weekend and 24 hours later this rash developed. Annabella endorses upper airwaysymptoms concerning for uncontrolled atopic disease. She takes Claritin as-needed; she denies dailysymptoms. She has one dog at home. She has never undergone allergy skin testing or received allergy immunotherapy. Today, she reports no fevers, chills, night sweats or other constitutional symptoms. * ROS: A LLERGY: runny nose Y es. s cratchy throat Y es. i tchy eyes N o. e ar fullness N o. s inus congestion Y es. P ositive p er the HPI and history, otherwise unremarkable. S PECIAL SENSES: Positve for n one. c ataracts N o. g laucoma?No. l oss of hearing N o. i tching in ears N o. r inging in ears N o.?loss of balance N o. l oss of smell N o. d ry eyes N o. e xcessive tearing No. i tching eyes N o. l oss of taste N o. c onjunctivitis N o. e ar infections N o. C ONSTITUTIONAL: weight gain N o. l oss of appetite N o. f ever?No. w eakness N o. w eight loss N o. f atigue N o. n ight sweats?No. P ositive for n one. E NT: cold N o. c ough N o. e pistaxis N o. h earing loss N o. c hange in voice N o. s ore throat N o. r inging in ears?No. s inus pain N o. P ositive p er the HPI and history, otherwise unremarkable.? R ESPIRATORY: shortness of breath N o. c hest pain N o. c hest congestion N o. c ough N o. P ositive p er the HPI and history, otherwise unremakable. O PHTHALMOLOGY: diminished vision N o. e ye irritation N o. d rainage from eyes N o. b lurring of vision N o. s easonal eye sx N o. P ositive for p er the HPI and history, otherwise unremarkable. i tching N o. s ensitivity to light N o. d ischarge N o. w atering N o. s welling of the eyelids N o. r edness N o. E NDOCRINOLOGY: fatigue N o. p olydipsia N o. p olyuria N o. w eight loss N o. s leep disturbance N o. c old intolerance N o. h eat intolerance N o. d iabetes N o. P ositive for n one. C ARDIOLOGY: chest pain N o. p alpitations N o. l eg edema?No. d izziness N o. s hortness of breath N o. P ositive for n one. ? G ASTROENTEROLOGY: dysphagia N o. a bdominal pain N o. n ausea?No. v omiting N o. c onstipation Y es. d iarrhea N o. b lood in stool?No. i ndigestion N o. h emorrhoids N o. P ositive for n one. U ROLOGY: difficulty urinating N o. b lood in urine N o. f requent urination N o. u rinary incontinence N o. r ecurrent UTI N o. P ositive for n one. D ERMATOLOGY: rash Y es,No. m ole N o. l umps N o. d ry or sensitive skin Y es. h rahul (urticaria) N o. a cne N o. s kin cancer?No. P ositive for p er the HPI and history, otherwise unremakable. N EUROLOGY: headache Y es. t ingling numbness N o. s eizures N o. i nsomnia N o. m radha loss N o. d izziness N o. g ait abnormality N o. P ositive for n one. H EMATOLOGY/LYMPH: Positive for n one. M USCULOSKELETAL: joint swelling N o. j oint pain N o. l eg cramps N o. j oint stiffness N o. s ciatica N o. o steoporosis N o. f racture N o. c arpal tunnel N o. g out N o. P ositive for n one. P SYCHOLOGY: high stress level Y es. d epression N o. s leep disturbances N o. s uicidal ideation N o. e ating disorder N o. m ental or physical abuse N o. a nxiety Y es. P ositive for n one. F EMALE REPRODUCTIVE: heavy periods N o. h ot flashes N o. a bnormal vaginal discharge N o. s exually active Y es. i nfertility N o. f requent yeat infections N o. p elvic pain N o. b reast pain N o. n ipple discharge No. A re you ? N o. A re you planning on a future pregancy? N o. ? A ll other review of systems per the HPI and history, otherwise unremarkable. * Medical History: * Surgical History: C -section 06/22/2007C-section 08/19/2011Ovary removed 02/24/2013 * Hospitalization/Major Diagno stic Procedure: N o Hospitalization History. * Family History: F ather: alive, Yes. M other: alive, Yes. P aternal Grand Father: Yes. P aternal Grand Mother: Yes. M aternal Grand Father: Yes. M aternal Grand Mother: Yes. P aternal uncle: No. P aternal aunt: Yes. M aternal uncle: Yes. M aternal aunt: Yes. S iblings: Yes. C hildren: Yes. * Social History: M arital Status What is your marital status? m arried A lcohol Screening Do you ever drink alcoholic beverages? Y es Number of drinks per occasion: 3 Frequency? W eekly C affeine: Yes. S moking Have you ever smoked tobacco: n ever smoked Are you a : n ever smoker S moking Smart Form Are you a: n ever smoker R ecreational drug use Have you ever used recreational drugs? N o D etails on consumption of certain products? Do you regularly consume products with aspartame; Equal or NutraSweet? N o Do you regularly consume products with artificial coloring??Yes Have you ever noticed worsening of your rash with these food items? Y es E xercise What kind(s) of exercise do you perform regularly? b iking,weight training,yoga,cardio How often do you perform this exercise? d aily A re any of the following personal care products containing fragrance, dye or preservatives used regularly? Shampoo: Y es Conditioner: Y es Soap: Y es Laundry Detergent: N o Fabric Softener: N o Deodorant: Y es Perfume, cologne, after shave: Y es Air freshners or other scented products: N o Hair coloring dyes or rinses: Y es Other: N o O ccupation Are you currenly employed? Y es Employment status? 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 number of years?5 Do you believe that your current or previous occupation has any bearing on your illness? N o Do you have any pending or planned legal action against your current or former employer which pertains to your medical illness? N o Do you anticipate that your evaluation will be used in any legal action against your current employer or former employer? N o Have you had any job with high exposure to fumes, chemicals, dust or other noxious substances? N o Are you currently a student? N o E nvironmental History Living environment: p rivate home Where is the home located? [place] Age of home: 1 3 How long have you lived there? 5 years or more How many people live in the home? 4 H ome description Basement: Y es Any water damage in basement? Y es Smokers in the home? N o Smokers outside the home? N o Air Conditioning? Y es Central Air? Y es Forced air heating? N o Fireplace? Y es Used how often? w inter months only Wood burning stove? N o Do you vacuum the home? Y es Air purification systems? N o Pillow and mattress dust-proof encasings? N o Do you use a humidifier? N o Do you own any pets? Y es What kind(s)? (click all that apply) d og Where do your pets sleep? b edroom Fabric softeners used? N o Plants in the home? N o Is there carpeting in your bedroom? Y es Age of carpet? 1 3 Do you have [id number] carpeting? N o What is the age of your mattress (years)? 2 What material(s) are used to manufacture your bedding and pillow? n atural fiber (e.g. cotton) What is the age of your pillow (years)? 4 What material are your bedding items made of? n atural fiber (e.g. cotton) Do you sleep with quilts or blankets or a duvet? Y es What material? n atural fiber (e.g. cotton) How many dogs? 1 T obacco Control (Standard) Tobacco use: N onsmoker * Medications: T akingReglan rizatriptan Adderall 20 mg tablet 1 tab(s) orally 2 times a day cetirizine 10 mg tablet 1 tab(s) orally BID Pepcid 20 mg tablet 1 tab(s) orally 2 times a day montelukast 10 mg tablet 1 tab(s) orally once a day Vanicream - ointment 1 brian applied topically 4 times a day Taking Reglan Taking rizatriptan Taking Adderall 20 mg tablet 1 tab(s) orally 2 times a day Taking cetirizine 10 mg tablet 1 tab(s) orally BID Taking Pepcid 20 mg tablet 1 tab(s) orally 2 times a day Taking montelukast 10 mg tablet 1 tab(s) orally once a day Taking Vanicream - ointment 1 brian applied topically 4 times a day Not-Taking/PRNmontelukast 10 mg tablet 1 tab(s) orally once a day Medication List reviewed and reconciled with the patientNot-Taking/PRN montelukast 10 mg tablet 1 tab(s) orally once a day Medication List reviewed and reconciled with the patient * Allergies: N .K.D.A.no[Allergies Verified] Objective: * Vitals: B P:135/85mm Hg, HR:92/min, RR:18/min, Pulse Oximetry:98%, Ht: 65 in, Wt: 121.4 lbs, BMI:20.2Index. * Examination: G eneral examination: General appearance: p leasant, well-developed, well-nourished, female, in no apparent distress, speaking in full sentences. HEENT: c onjunctiva are normal bilaterally, TMs without evidence of acute infection, p osterior oropharynx is clear without exudates, tonsils are present, no tongue swelling, and uvula is midline. Oral cavity: n ormal, no lesions. Breasts : n ot performed. Heart: R RR, S1-S2, no murmurs, no rubs, no gallops. Lungs: c lear to auscultation in all lung green, no wheezes or crackles. Neurologic exam: u nremarkable. Skin: n ormal, no visible rash, dermatographism, urticaria, angioedema. Back: n ormal. Genitalia: n ot performed. Assessment: * Assessment: 1. R gina and other nonspecific skin eruption - R21 (Primary) 2 . H ypertrophy of nasal turbinates - J34.3 3 . C hronic rhinitis - J31.0 4 . E levated blood-pressure reading, without diagnosis of hypertension - R03.0 Plan: * Treatment: 2. H ypertrophy of nasal turbinates Notes: Annabella endorses occasional upper airway symptoms concerning for atopic disease. She currently takes Claritin as-needed. Denies daily symptoms. She has one dog at home. - Consider skin testing to aeroallergens in the future, Annabella is not interested at this time? 3. C hronic rhinitis Notes: See plan above 4. E levated blood-pressure reading, without diagnosis of hypertension Notes: BP elevated today without symptoms of urgency or emergency. Continue serial checks and follow-up with PCP * Procedure Codes: G 8427 DOC MEDS VERIFIED W/PT OR RE * Preventive Medicine: Counseling: D iet a s tolerated. E xercise C ontinue activity as usual. E ducation: G ENERAL EDUCATION: Our staff spent an additional 30 minutes in direct contact with the patient educating them on their current diagnoses and proper treatment and prevention of symptoms and the proper use of medications, HIVES EDUCATION:, Avoid opioid-containing analgesics, Avoid excessive alcohol use, Avoid NSAIDs (non-steroidal anti-inflammatories), SKIN CARE EDUCATION:, Skin care regimen reviewed with patient, Daily bathing to add moisture to skin, Apply moisturizing cream head-to-toe to lock in moisture within 2 minutes of exiting bath, Avoid fragrances, dyes, preservatives in personal care products. P atient education material sent to portal? Y es B P Management: LIFESTYLE RECOMMENDATION: H ypertension education REFERRAL TO ALTERNATIVE / PRIMARY CARE PROVIDER: Say anthony to general practitioner * Follow Up: 3 Months (Reason: Evaluation and Management) * Billing Information: * Visit Code: 95705 Office Visit, Est Pt., Level 4. Modifiers: 25 * Procedure Codes: G8427 DOC MEDS VERIFIED W/PT OR RE. * Electronically co-signed by Jaleel Gonzales MD, FAAAAI on 10/03/2023 at 06:22 PM CDT Sign off status: Completed true * Provider: Torito Burch DNP [employer]ER-[facility] Date: 0 07/26/2023 Generated for Williams choi/Willie/eTransmitting on: 0 06/13/2024 07:08 AM CDT History and Physical Notes * HPI (History of Present Illness) Category Sub-Category Detail Notes Category Not es *Introduction I had the pleasure o f seeing Annabella Ramos, a 38-year-old female with past medical history significant for gastroparesis and migraines who returns for rash follow-up. She is alone for today's visit. Annabella has been experiencing an erythematous, slightly raised rash that occurs on her face and neck. Symptoms first occurred a year and a half ago, however in the past three months it has been occurring more frequently. She states the rash will come and go within 2-3 days without clear trigger. Initially she was concerned it was related to gluten consumption, however has not identified a clear correlation. She denies associated symptoms including facial swelling, lower airway or GI symptoms. She has tried using hydrocortisone cream previously, which she does feel is beneficial. Annabella currently uses Blackfeet body wash, Joico shampoo and conditioner, Young Living and Tide laundry detergent. She had an appointment with dermatology, however canceled it as the rash was not present at the time. Last visit we started trial of Zyrtec and Pepcid BID and Singulair at night, which Annabella does feel was beneficial, however rash did occur twice in the last 4 weeks. She feels she has identified a specific skin care brand that is causing her symptoms, reports she used the makeup over the weekend and 24 hours later this rash developed. Annabella endorses upper airway symptoms concerning for uncontrolled atopic disease. She takes Claritin as-needed; she denies daily symptoms. She has one dog at home. She has never undergone allergy skin testing or received allergy immunotherapy. Today, she reports no fevers, chills, night sweats or other constitutional symptoms Examination Category Sub-Category Detail Notes Category Not es General examination HEENT: conjunctiva are normal bilaterally, TMs without evidence of acute infection, posterior oropharynx is clear without exudates, tonsils are present, no tongue swelling, and uvula is midline Heart: RRR, S1-S2, no murmu rs, no rubs, no gallops Lungs: clear to auscultatio n in all lung green, no wheezes or crackles General appearance: pleasant, well-devel oped, well-nourished, female, in no apparent distress, speaking in full sentences Skin: normal, no visible r gina, dermatographism, urticaria, angioedema Neurologic exam: unremarkable Oral cavity: normal, no lesions Breasts : not performed Back: normal Genitalia: not performed
--- OUTSIDE RECORDS SUMMARY | 2024-06-13 07:08 | XMS_ITS | Clinical Summary ---
Author Organization [facility] Address [address] [place] [address] Care Team Providers Care Rotor Blade Installer Name Role Phone Anurag Balderas MD Primary Care Provider [phone] Allergies No known active allergies Medications amphetamine-dext roamphetamine 10 MG tablet Take 10 mg by mouth daily. 10/17/2019 Active citalopram 10 MG tablet Take 10 mg by mouth daily. Active topiramate 50 MG Tab Take 50 mg by mouth daily. 08/29/2014 Active Social History Tobacco Use Types Packs/Day Years Used Date Smoking Tobacco: Never Smokeless Tobacco: Never Alcohol Use Standard Drinks/Week Comments Yes 0 (1 standard drink = 0.6 oz pur e alcohol) SOCIALLY Comments No Sex and Gender Information Value Date Recorded Sex Assigned at Not on file Legal Sex Female 7:10 PM CDT Gender Identity Not on file Sexual Orientation Not on file Last Filed Vital Signs Vital Sign Reading Time Taken Comments Blood Pressure 122/75 10/29/2019 11:37 PM CDT Pulse 135 10/29/2019 11:37 PM CDT Temperature 36.9 C (98.4 F) 10/29/2019 6:36 PM CDT Respiratory Rate 17 10/29/2019 11:37 PM CDT Oxygen Saturation 98% 10/29/2019 10:00 PM CDT Inhaled Oxygen Concentration - - Weight 52.2 kg (115 lb) 10/29/2019 6:36 PM CDT Height 165.1 cm (5' 5 ) 10/29/2019 6:36 PM CDT Body Mass Index 19.14 10/29/2019 6:36 PM CDT Plan of Treatment Health Maintenance Due Date Last Done Comments Cervical Cancer Screening Pa p Smear (Age 30 to 64) Every 3 Years 1984 Annual Physical 1987 Hepatitis C 2002 DTaP, Tdap and Td Vaccines ( 1 - Tdap) 2003 Hepatitis B Vaccines (1 of 3 - 19+ 3-dose series) 2003 Cervical Cancer Screening Reggie purvis with HPV Testing (Age 30 to 64) Every 5 Years 2014 Cervical Cancer Screening with HPV 2014 COVID-19 Vaccine ( - 2023-2 5 season) 2023 Mammogram Screening 2024 HPV Vaccines Aged Out No longer eligi ble based on patient's age to complete this topic Meningococcal B Vaccine Aged Out No l onger eligible based on patient's age to complete this topic Meningococcal Vaccine Aged Out No katelyn sean eligible based on patient's age to complete this topic Pneumococcal Vaccine: Pediat rics (0 to 5 Years) and At-Risk Patients (6 to 64 Years) Aged Out No longer eligible b ased on patient's age to complete this topic RSV Immunizations Under 20 Months Aged Out No longer eligible based on patient's age to complete this topic Care Teams Rotor Blade Installer Relationship Specialty Start Date End Date Anurag Balderas MD [address] [place] [address] PCP - General INTERNAL MEDICINE 10/29/19
--- OUTSIDE RECORDS SUMMARY | 2024-06-13 07:09 | XMS_ITS | Patient Health Record ---
Author Organization [facility] Address [address] [place] [address] Care Team Providers Care Mobile Web Application Developer Name Role Phone Robert Paulino MD Primary Care Provider Unavaila Patty Rees Unavailable [phone] ZZ-Migration, Provider Unavailable Unavailab le Allergies No Known Allergies Reason For Referral No Information Medications Medication SIG (Take, Route, Frequency, Duration) Notes Start Date End Date Status MONTELUKAST 10 mg 1 tab(s) orally once a day for 30 days 06/21/2023 Active VANICREAM - 1 brian applied topically 4 times a day Active Montelukast Sodium 10 MG TAKE 1 TABLET BY MOUTH EVERY DAY FOR 90 DAYS for 90 Active PEPCID 20 mg 1 tab(s) orally 2 times a day for 30 days 06/21/2023 Active MONTELUKAST 10 mg 1 tab(s) orally once a day for 90 days Not-Taking ADDERALL 20 mg 1 tab(s) orally 2 times a day Active CETIRIZINE 10 mg 1 tab(s) orally BID for 30 days 06/21/2023 Active REGLAN Active RIZATRIPTAN Active Pepcid 20 MG 1 tab(s) orally 2 times a day for 30 days 06/21/2023 Active Vanicream - 1 brian applied topically 4 times a day Active Adderall 20 MG 1 tab(s) orally 2 times a day Active Cetirizine HCl 10 MG 1 tab(s) orally BID for 30 days 06/21/2023 Active Reglan *Please review a nd pick correct strength-formulati on from Medispan options. If intended option is not shown, discontinue and re-order from Quick Search* Active Rizatriptan Benzoate *Please review and pick correct strength-formulati on from Medispan options. If intended option is not shown, discontinue and re-order from Quick Search* Active Social History Tobacco Use: Social History Observation Description Date Details (start date - stop date) Never Smoker NA - NA Smoking Smart Form: Question Answer Notes Are you a: never smoker Tobacco Control (Standard) Question Answer Notes Tobacco use: Nonsmoker Problems Problem Type SNOMED Code ICD Code Onset Dates Problem Status W/U Status Risk Notes Problem Eruption of skin (042126766) Rash and other nonspecific skin eruption (R21) Active confirmed Problem Chronic rhinitis (34257279) Chronic rhinitis (J31.0) Active confirmed Problem Hypertrophy of nasal turbinates (56966720) Hypertrophy of nasal turbinates (J34.3) Active confirmed Problem Elevated blood pressure reading without diagnosis of hypertension (199283129) Elevated blood-pressure reading, without diagnosis of hypertension (R03.0) Active confirmed Vital Signs Respiratory Rate 18 /min 07/26/2023 Oximetry 98 % 07/26/2023 Blood pressure diastolic 85 mm Hg 07/26/2023 Height 65 in 07/26/2023 Blood pressure systolic 135 mm Hg 07/26/2023 Weight 121.4 lbs 07/26/2023 BMI 20.2 kg/m2 07/26/2023 Encounters Encounter Location Date Provider Diagnosis [address] [address] 08/28/2023 Provider ZZ-Migration Rash and other nonspecific skin eruption R21 [facility] [address] [address] 06/21/2023 Patty Hagnauer Hypertrophy of nasal turbinates J34.3 ; Rash and other nonspecific skin eruption R21 ; Chronic rhinitis J31.0 and Elevated blood-pressure reading, without diagnosis of hypertension R03.0 [facility] [address] [address] 07/26/2023 Patty Hagnauer Hypertrophy of nasal turbinates J34.3 ; Rash and other nonspecific skin eruption R21 ; Chronic rhinitis J31.0 and Elevated blood-pressure reading, without diagnosis of hypertension R03.0 [facility] [address] [facility] [address] [place] [address] 08/31/2023 Patty Burch Assessments Encounter Date Diagnosis (ICD Code) Assessment Notes Treatment Notes Treatment Clinical Notes Section Notes 06/21/2023 Rash and other nonspecific skin eruption (ICD-10 - R21) Annabella presents with complaints of a rash that has [...] she did find beneficial. - Photo review shows erythematous patches across face and neck, some lesions appear raised while others appear flat. Annabella's symptoms appear both typical and atypical for urticaria, as well as typical and atypical for contact dermatitis. - Consider CIU vs contact dermatitis vs other. - After discussion with Annabella, will trial treatment with Zyrtec BID, Pepcid BID and Singulair at night. If symptoms persist despite this regimen, consider contact dermatitis vs other. - Recommend changing products to dye-free, scent-free, paraben free. Suggested Vanicream line for all products in addition to All Free and Clear Laundry detergent. Samples given today. - Symptoms described do not appear consistent with an IgE-mediated hypersensitivity reaction. Empirical skin testing is not recommended. - Discussed strict journaling for triggers. - If symptoms do not improve with regimen above, consider patch testing. - Consider skin testing to aeroallergens, however photo review is not consistent with atopic dermatitis. - Consider consult with dermatology for biopsy. - Return in 4 weeks for further evaluation and management 06/21/2023 Hypertrophy of nasal turbinates (ICD-10 - J34.3) [...] months for further evaluation and management 07/26/2023 Hypertrophy of nasal turbinates (ICD-10 - J34.3) Annabella endorses occasional upper airway symptoms concerning for atopic disease. She currently takes Claritin as-needed. Denies daily symptoms. She has one dog at home. - Consider skin testing to aeroallergens in the future, Annabella is not interested at this time 08/28/2023 Rash and other nonspecific skin eruption (ICD-10 - R21) 07/26/2023 Chronic rhinitis (ICD-10 - J31.0) See plan above 06/21/2023 Chronic rhinitis (ICD-10 - J31.0) See plan above 06/21/2023 Elevated blood-pressure reading, without diagnosis of hypertension (ICD-10 - R03.0) BP elevated today without symptoms of urgency or emergency. Continue serial checks and follow-up with PCP 07/26/2023 Elevated blood-pressure reading, without diagnosis of hypertension (ICD-10 - R03.0) BP elevated today without symptoms of urgency or emergency. Continue serial checks and follow-up with PCP 06/21/2023 Other 07/26/2023 Other Plan Of Treatment No Information Insurance Providers Payer Name Payer Address Payer Phone Subscriber Number Group Number Insured Name Patient Relationship to Insured Coverage Start Date Coverage End Date [facility] [address] [place] [address] [id number] Annabella Zabala Self - patient is the insured 2 Medical (General) History Surgical History Surgery Date(Month/Year) 06/22/2007 08/19/2011 Ovary removed 02/24/2013
--- OUTSIDE RECORDS SUMMARY | 2024-06-13 07:09 | XMS_ITS ---
Author Organization [facility] Address [address] [place] [address] Care Team Providers Care Nurse Paralegal Name Role Phone Robert Paulino MD Primary Care Provider Patty Moura [phone] REASON FOR VISIT Office visit receipt Encounters Encounter Location Date Provider Diagnosis [facility] [address] [place] [address] 08/31/2023 Patty Burch Plan Of Treatment No Information Progress Notes * Dayna RAMOSOB: 5 (38 yo F)Acc No.[id number]:08/31/2023 Patient: Annabella MCLEOD :1985 A ge:38 Y S ex:Female Address:[address] [place] [address] * true * Date: Generated for Printi ng/Faalenag/eTransmitting on: 0 06/13/2024 07:08 AM CDT
--- OUTSIDE RECORDS SUMMARY | 2024-06-13 07:09 | XMS_ITS | Clinical Summary ---
Author Organization [facility] Address [address] [place] [address] Care Team Providers Care Implementation Manager Name Role Phone Unavailable Primary Care Provider Unavailabl e Source Comments [facility],non-owned Affiliates and Associated Physician Practices is amultiple site organization consisting of ambulatory clinics and hospital sitesin [place], [place]. This disclosure is being madepursuant to the Care Everywhere program and may not contain all information available regarding this patient. Last updated 17.[facility] Digital Perception Active Problems Problem Noted Date Diagnosed Date Seizures 10/29/2019 Social History Tobacco Use Types Packs/Day Years Used Date Smoking Tobacco: Never Assessed Sex and Gender Information Value Date Recorded Sex Assigned at Not on file Gender Identity Not on file Sexual Orientation Not on file Plan of Treatment Health Maintenance Due Date Last Done Comments LIPID TESTING 1984 MAMMOGRAM 1984 PAP SMEAR 1984 HIV SCREENING 1999 HEPATITIS C SCREENING 04/27/2002 DTAP/TDAP/TD VACCINES (1 - Tdap) 2003 HEPATITIS B VACCINE (1 of 3 - 19+ 3-dose series) 2003 COVID-19 VACCINE ( - 2023-2 5 season) 2023 INFLUENZA VACCINE (#1) 2023 DEPRESSION SCREENING 03/15/2024 ZOSTER VACCINE (1 of 2) 2034 HIB VACCINE Aged Out No longer eligi ble based on patient's age to complete this topic HPV VACCINE Aged Out No longer eligi ble based on patient's age to complete this topic MENINGOCOCCAL (Group B) VACC INE SHARED DECISION-MAKING Aged Out No longer eligibl e based on patient's age to complete this topic MENINGOCOCCAL GROUPS A/C/Y/W VACCINE Aged Out No longer eligible b ased on patient's age to complete this topic PNEUMOCOCCAL VACCINE Aged Out No long er eligible based on patient's age to complete this topic MIGUEL RAMOS Personal/Family [address] [place] [address] MIGUEL RAMOS Personal/Family [address] [place] [address] MIGUEL RAMOS Personal/Family [address] [place] [address] Miguel Ramos Personal/Family Self 1985 [address] [place] [address]
[2024-06-13 08:12] LABS: Basophils Percent Auto 0.5 % (0.2-1.2); Eosinophils Percent Auto 0.5 % (0-4.4); Hematocrit 43.5 % (37.0-47.0); Immature Granulocyte Absolute 0.02 K/mm3 (0.00-0.031); Immature Granulocyte Percent A 0.5 % (0-0.5); Lymphocytes Absolute Auto 1.26 K/mm3 (0.9-3.2); Lymphocytes Percent Auto 34.2 % (18.3-44.2); Mean Corpuscular HGB Conc 34.5 g/dl (32-36); Mean Corpuscular Hemoglobin 33.1 pg (26-34); Mean Platelet Volume 10.7 fl (7.4-10.4); Monocytes Absolute Auto 0.5 K/mm3 (0.1-0.6); Monocytes Percent Auto 14.7 % (2.6-8.5); Neutrophils Absolute Auto 1.8 K/mm3 (1.3-6.7); Neutrophils Percent Auto 49.6 % (45.5-73.1); Platelet Count Result 181 k/mm3 (150-375); Red Blood Count 4.53 M/mm3 (4.2-5.4); Red Cell Distribution Width 11.8 % (11.5-14.5); White Blood Count 3.7 K/mm3 (4.5-10.0)
== END 2024-06-13 07:06 | disposition home or self-care (01) ==
LOC: ANHLAB 07:06
PROVIDERS: PCP Family Medicine; Visit Provider Physician Assistant Medical
DX: D72.819 Decreased white blood cell count, unspecified (principal)
CPT/HCPCS: 36415; 85025

== ENCOUNTER 2024-07-28 07:13 | Outpatient (CLI) | payer OTHER, SELFPAY ==
--- OUTSIDE RECORDS SUMMARY | 2024-07-28 07:17 | XMS_ITS ---
Author Organization [facility] ([address]) Address [address] [place] [address] Care Team Providers Care Bottom Turning Lathe Turner Name Role Phone Robert Paulino MD Primary Care Provider Patty Moura Unavailable [phone] Allergies No Known Allergies REASON FOR VISIT [...] 07/26/2023 Encounters Encounter Location Date Provider Diagnosis [facility] [address] [place] [address] 07/26/2023 Patty Burch Hypertrophy of nasal turbinates [...] * Kalin RAMOSeDOB: 5 (38 yo F)Acc No.[id number]:07/26/2023 Progress Notes Patient: Annabella MCLEOD Provider: SANDER Bobo :1985 A ge:38 Y S ex:Female Date:07/26/2023 Address: [address], [id number] Pcp:Robert Paulino MD Subjective: * Chief Complaints: [...] the pleasure of seeing Jason Ramos, a [id number] female with past medical history significant for [...] n one. c ataracts N o. g laucoma No. l oss of hearing N o. i tching in ears N o. r inging in ears N o. loss of balance N o. l oss of smell N o. d ry eyes N o. e xcessive tearing No. i tching eyes N o. l oss of taste N o. c onjunctivitis N o. e ar infections N o. C ONSTITUTIONAL: weight gain N o. l oss of appetite N o. f ever No. w eakness N o. w eight loss N o. f atigue N o. n ight sweats No. P ositive for n one. E NT: cold N o. c ough N o. e pistaxis N o. h earing loss N o. c hange in voice N o. s ore throat N o. r inging in ears No. s inus pain N o. P ositive p er the HPI and history, otherwise unremarkable. R ESPIRATORY: shortness of breath N o. [...] o. p alpitations N o. l eg edema No. d izziness N o. s hortness of breath N o. P ositive for n one. G ASTROENTEROLOGY: dysphagia N o. a bdominal pain N o. n ausea No. v omiting N o. c onstipation Y es. d iarrhea N o. b lood in stool No. i ndigestion N o. h emorrhoids N [...] o. a cne N o. s kin cancer No. P ositive for p er the HPI [...] planning on a future pregancy? N o. A ll other review of systems per [...] Do you regularly consume products with artificial coloring? Yes Have you ever noticed worsening of your [...] your worked in this occupation? number of years 5 Do you believe that your current or [...] of carpet? 1 3 Do you have mggh-mr-znzy carpeting? N o What is the age [...] Annabella is not interested at this time 3. C hronic rhinitis Notes: See plan [...] Management) * Billing Information: * Visit Code: 44467 Office Visit, Est Pt., Level 4. Modifiers: 25 * Procedure Codes: G8427 DOC MEDS VERIFIED W/PT OR RE. * Electronically co-signed by Jaleel Gonzales MD, FAAAAI on 10/03/2023 at 06:22 PM CDT Sign off status: Completed true * Provider: Torito Burch DNP SPOOL WORKER-C Date: 07/26/2023 Generated for Williams choi/Willie/eTransmitting on: 07/28/2024 07:17 AM CDT History and Physical Notes * HPI (History of Present Illness) Category Sub-Category Detail Notes Category Not es *Introduction HPI: Annabella Ramos, a 38-year-old female with past [...] does feel is beneficial. Annabella currently uses [place] body wash, Joico shampoo and conditioner, Young [...]
--- OUTSIDE RECORDS SUMMARY | 2024-07-28 07:18 | XMS_ITS | Clinical Summary ---
Author Organization [facility] Address [address] [place] [address] Care Team Providers Care Legal Examiner Name Role Phone Anurag Balderas MD Primary Care Provider [phone] Allergies No known active allergies Medications dextroamphetami [...] of 3 - 19+ 3-dose series) 2003 HPV/Cotest (21-29) 2005 CERVICAL CANCER SCREENING 2014 HPV/Cotest (30-65) 2014 PAP SMEAR 2014 INFLUENZA VACCINE (#1) 2023 BREAST CANCER SCREENING 2024 HPV VACCINES Aged Out No longer eligi ble based on patient's age to complete this topic Insurance [facility] [employer] PPO [id number] Care Teams Legal Examiner Relationship Specialty Start Date End Date Anurag Balderas MD [address] [place] [address] [address] [place] [id number] PCP - General Internal Medicine 08/12/16
--- OUTSIDE RECORDS SUMMARY | 2024-07-28 07:18 | XMS_ITS ---
Author Organization [facility] [place] ([address]) Address [address] [place] [address] Care Team Providers Care Manager Deli Name Role Phone Robert Paulino MD Primary Care Provider Patty Moura [phone] REASON FOR VISIT Office visit receipt Encounters Encounter Location Date Provider Diagnosis [facility] [address] [place] [address] 08/31/2023 Patty Burch Plan Of Treatment No Information Progress Notes * Dayna RAMOSOB: 5 (38 yo F)Acc No.[id number]:08/31/2023 Patient: Annabella MCLEOD :1985 A ge:38 Y S ex:Female Address:[address] [place] [address] * true * Date: Generated for Printi ng/Faxing/eTransmitting on: 0 07/28/2024 07:18 AM CDT
--- OUTSIDE RECORDS SUMMARY | 2024-07-28 07:18 | XMS_ITS | Clinical Summary ---
Author Organization [facility] Address [address] [place] [address] Care Team Providers Care Admitting Manager Name Role Phone Anurag Balderas MD Primary Care Provider [phone] Allergies No known active allergies Medications amphetamine-dext [...] 5 Years) and At-Risk Patients (6 to 49 Years) Aged Out No longer eligible b ased on patient's age to complete this topic RSV Immunizations Under 20 Months Aged Out No longer eligible based on patient's age to complete this topic Care Teams Admitting Manager Relationship Specialty Start Date End Date Anurag Balderas MD [address] [place] [address] PCP - General INTERNAL MEDICINE 10/29/19
--- OUTSIDE RECORDS SUMMARY | 2024-07-28 07:18 | XMS_ITS | Encounter Summary ---
Author Organization [facility] Address [address] [place] [address] Care Team Providers Care Wallpaper Remover Steam Name Role Phone Anurag Balderas MD Primary Care Provider [phone] Encounter Details Date Type Department Care Team (Late st Contact Info) Description 02/26/[address] [facility] CONVERSION [address] [place] [address] , Generic Conversion, Social History Tobacco Use [...] on filedocumented in this encounter Care Teams Wallpaper Remover Steam Relationship Specialty Start Date End Date Anurag Balderas MD [address] [place] [address] PCP - General INTERNAL MEDICINE 10/29/19 documented as of this encounter
--- OUTSIDE RECORDS SUMMARY | 2024-07-28 07:18 | XMS_ITS | Clinical Summary ---
Author Organization [facility] Address [address] [place] [address] Care Team Providers Care Setup Operator Name Role Phone Unavailable Primary Care Provider Unavailabl e Source Comments [facility],non-owned Affiliates and Associated Physician Practices is amultiple site organization consisting of ambulatory clinics and hospital sitesin [place], [place], [place] and [place]. This disclosure is being madepursuant to the Care Everywhere program and may not contain all information available regarding this patient. Last updated 17.[facility] Active Problems Problem Noted Date Diagnosed Date Seizures 10/29/2019 Social History Tobacco Use Types Packs/Day Years Used Date Smoking Tobacco: Never Assessed Comments Unknown Sex and Gender Information Value Date Recorded Sex Assigned at Not on file Legal Sex Female 9:47 AM CDT Gender Identity Not on file Sexual Orientation Not on file Plan of Treatment Health Maintenance Due Date Last Done Comments LIPID TESTING 1985 MAMMOGRAM 1984 PAP SMEAR 1984 HIV SCREENING 1999 HEPATITIS C SCREENING 04/27/2002 DTAP/TDAP/TD VACCINES (1 - Tdap) 2003 HEPATITIS B VACCINE (1 of 3 - 19+ 3-dose series) 2003 COVID-19 VACCINE ( - 2023-2 5 season) 2023 DEPRESSION SCREENING 03/15/2024 INFLUENZA VACCINE (Season Ended) 2024 ZOSTER VACCINE (1 of 2) 2034 HIB [...] patient's age to complete this topic Insurance [facility] * Guarantor: MIGUEL RAMOS Account Type Relation to Patient Date of Phone Billing Address Personal/Family [address] [place] [address] SELF PAY NO INSURANCE Member Subscriber Plan / Payer (Ef fective for All Dates) Name:Miguel Ramos Member ID:Not on file Relation to Subscriber:Not on file Name:MIGUEL RAMOS Subscriber ID:Not on file Address: [address] [place] [address] Payer ID:Not on file Group ID:Not on file Type:Self Pay Address: [facility] * Guarantor: MIGUEL RAMOS Account Type Relation to Patient Date of Phone Billing Address Personal/Family [address] [place] [address] SELF PAY NO INSURANCE Member Subscriber Plan / Payer (Ef fective for All Dates) Name:Miguel Ramos Member ID:Not on file Relation to Subscriber:Not on file Name:MIGUEL RAMOS Subscriber ID:Not on file Address: [address] [place] [address] Payer ID:Not on file Group ID:Not on file Type:Self Pay Address: [place], [place] * Guarantor: MIGUEL RAMOS Account Type Relation to Patient Date of Phone Billing Address Personal/Family [address] [place] [address] SELF PAY NO INSURANCE Member Subscriber Plan / Payer (Ef fective for All Dates) Name:Miguel Ramos Member ID:Not on file Relation to Subscriber:Not on file Name:MIGUEL RAMOS Subscriber ID:Not on file Address: [address] [place] [address] Payer ID:Not on file Group ID:Not on file Type:Self Pay Address: [place], [place]
--- OUTSIDE RECORDS SUMMARY | 2024-07-28 07:18 | XMS_ITS ---
Author Organization [facility] [place] ([address]) Address [address] [place] [address] Care Team Providers Care Supervisor Pipelines Name Role Phone Robert Paulino MD Primary Care Provider Unavaila Patty Rees Unavailable [phone] ZZ-Migration, Provider Unavailable Unavailab le REASON FOR VISIT Multum To Medispan Conversion Encounter Medications Medication SIG (Take, Route, [...] Active Encounters Encounter Location Date Provider Diagnosis [facility]ANETTE Aleg[place] [address] [place] [address] [place] [address] 08/28/2023 Provider Raisa Rash and other nonspecific skin eruption R21 Assessments Encounter Date Diagnosis (ICD Code) Assessment Notes Treatment Notes Treatment Clinical Notes Section Notes 08/28/2023 Rash and other nonspecific skin eruption (ICD-10 - R21) Plan Of Treatment Medication Medication Name Sig Start Date Stop Date Notes Vanicream - 1 brian applied topically 4 times a day Progress Notes * Kalin RAMOSeDOB: 5 (39 yo F)Acc No.[id number]:08/28/2023 Patient: Annabella MCLEOD Provider: Cari Hinkle :1985 A ge:38 Y S ex:Female Date:08/28/2023 Address: [address] [facility] Pcp:Robert Paulino MD Subjective: * Chief Complaints: * 1 . Multum To Medispan Conversion Encounter. * Medical History: * Medications: T aking Reglan , Notes to Pharmacist: *Please review and pick correct strength-formulation from STinserspan options. If intended option is not shown, discontinue and re-order from Quick Search*, Taking Rizatriptan Benzoate , Notes to Pharmacist: *Please review and pick correct strength-formulation from Medispan options. If intended option is [...] Electronic signature of Prov ider ZZ-Migration on 07/28/2024 at 07:17 AM CDT Sign off status: Pending * Provider: Cari Hinkle Date: 0 08/28/2023 Generated for Williams choi/Willie/Selinitting on: 0 07/28/2024 07:17 AM CDT
--- OUTSIDE RECORDS SUMMARY | 2024-07-28 07:19 | XMS_ITS | Patient Health Record ---
Author Organization [facility] [place] ([address]) Address [address] [place] [address] Care Team Providers Care Large Sheetfed Press Operator Name Role Phone Robert Paulino MD Primary Care Provider Unavaila Patty Rees Unavailable [phone] [facility], Provider Unavailable Unavailab le Allergies No Known [...] Status Risk Notes Problem Eruption of skin (824099890) Rash and other nonspecific skin eruption (R21) Active confirmed Problem Chronic rhinitis (96224606) Chronic rhinitis (J31.0) Active confirmed Problem Hypertrophy of nasal turbinates (31291251) Hypertrophy of nasal turbinates (J34.3) Active confirmed Problem Elevated blood-pressure reading, without diagnosis of hypertension (R03.0) Active confirmed Encounters Encounter Location Date Provider Diagnosis [address] [address] 08/28/2023 Provider [facility]Z-[facility] Rash and other nonspecific skin eruption R21 [facility] [address] [facility] [address] [place] [address] 08/31/2023 Patty Burch Assessments Encounter Date Diagnosis (ICD Code) Assessment Notes Treatment Notes Treatment Clinical Notes Section Notes 08/28/2023 Rash and other nonspecific skin eruption (ICD-10 - R21) Plan Of Treatment No Information Insurance Providers Payer Name Payer Address Payer Phone Subscriber Number Group Number Insured Name Patient Relationship to Insured Coverage Start Date [facility]age End Date [facility] [address] [place] [phone] [id number] Annabella Zabala Self - patient is the insured 2 Medical (General) History Surgical History Surgery Date(Month/Year) 06/22/2007 08/19/2011 Ovary removed 02/24/2013
[2024-07-28 07:43] LABS: Basophils Percent Auto 0.4 % (0.2-1.2); Eosinophils Percent Auto 0.6 % (0-4.4); Hematocrit 41.7 % (37.0-47.0); Hemoglobin 14.5 g/dL (12.0-15.0); Immature Granulocyte Absolute 0.02 K/mm3 (0.00-0.031); Immature Granulocyte Percent A 0.4 % (0-0.5); Lymphocytes Absolute Auto 1.37 K/mm3 (0.9-3.2); Lymphocytes Percent Auto 27.9 % (18.3-44.2); Mean Corpuscular HGB Conc 34.8 g/dl (32-36); Mean Corpuscular Hemoglobin 33.3 pg (26-34); Mean Corpuscular Volume 95.9 fl (80-100); Mean Platelet Volume 10.2 fl (7.4-10.4); Monocytes Absolute Auto 0.6 K/mm3 (0.1-0.6); Neutrophils Absolute Auto 2.8 K/mm3 (1.3-6.7); Neutrophils Percent Auto 57.7 % (45.5-73.1); Platelet Count Result 203 k/mm3 (150-375); Red Blood Count 4.35 M/mm3 (4.2-5.4); Red Cell Distribution Width 11.7 % (11.5-14.5); White Blood Count 4.9 K/mm3 (4.5-10.0)
[2024-07-28 07:53] LABS: Iron 94 ug/dL (37-170)
[2024-07-28 08:03] LABS: Percent Iron Saturation 38 % (20-50)
== END 2024-07-28 07:14 | disposition home or self-care (01) ==
LOC: ANHLAB 07:15
PROVIDERS: PCP Family Medicine; Visit Provider Physician Assistant
DX: D72.819 Decreased white blood cell count, unspecified (principal); D64.9 Anemia, unspecified
CPT/HCPCS: 36415; 82607; 83540; 83550; 85025